=== PATIENT | female | born 1955 | race Caucasian/White ===

== ENCOUNTER 2021-02-26 13:43 | Outpatient (CLI) | payer MEDICARE, SELFPAY ==
--- NOTE | 2021-02-26 13:57 | MM_ITS ---
WS: [id number] Exam: [place] [id number] Date/Time of Exam: 02/26/2021 2:00 PM Reason For Exam: SCREENING VIEWS: MLO and CC views both breasts. Comparison made with prior exam of 09/04/2011. Findings: There was no sign of mass, architectural distortion or suspicious calcification in either breast. Sta ble appearing small nodular densities in both breasts Fatty MM/[place] [id number] Impression: BI-RADS: 2-Benign FOLLOW-UP: 1 Year Follow-up This mammogram was also analyzed by the Computer Aided Detection System R2 Imag e Inspector Tester Sorter.
== END 2021-02-26 13:44 | disposition home or self-care (01) ==
LOC: RADSHAW 13:48
PROVIDERS: PCP Nurse Practitioner Family; Visit Provider Nurse Practitioner Family
DX: Z12.31 Encounter for screening mammogram for malignant neoplasm of breast (principal)
CPT/HCPCS: 77067

== ENCOUNTER 2021-03-13 10:26 | Outpatient (CLI) | payer MEDICARE, SELFPAY ==
--- NOTE | 2021-03-13 10:40 | XR_ITS ---
WS: [id number] XR lumbar spine 2-3V* [id number] REASON FOR EXAM: HIP PAIN/LOW BACK PAIN/FALL IN SHOWER FINDINGS: Mild rotatory scoliosis convex left. Mildly decreased bone density of the lumbar vertebrae without significant compression deformity or ot her focal lesion. Mild disc space narrowing at L1-L2 and L5-S1. No significant listhesis. XR/XR lumbar spine 2-3V* [id number] IMPRESSION: Mild changes of degenerative spondylosis with no acute abnormality.
--- NOTE | 2021-03-13 10:40 | XR_ITS ---
NOTE: Report was unsigned for reason: Order was edited. Original Signature date and time was: 03/13/21 @ 1134 WS: [id number] XR hip BI 3-4V wo/w pel [id number] REASON FOR EXAM: HIP PAIN/LOW BACK PAIN/FALL IN SHOWER FINDINGS: No fracture or focal bone lesion. Mild changes of osteoarthritis in both hips with mild joint space narrowing and subchondral sclerosis and marginal osteophytes of the acetabulum. No soft tissue abnormality. [facility] BI m 5V wo/w pel* [id number] IMPRESSION: Mild osteoarthritis of both hips with no acute abnormality identified.
== END 2021-03-13 10:27 | disposition home or self-care (01) ==
PROVIDERS: PCP Nurse Practitioner Family; Visit Provider Nurse Practitioner Family
DX: M54.50 Low back pain, unspecified (principal); M16.0 Bilateral primary osteoarthritis of hip; W18.2XXA Fall in (into) shower or empty bathtub, initial encounter
CPT/HCPCS: 72100; 73522; 73523

== ENCOUNTER 2022-10-25 14:50 | Outpatient (CLI) | payer MEDICARE, SELFPAY ==
--- NOTE | 2022-10-25 | USCV_ITS ---
Divina Escobar Age: 67 Gender: F : 1955 Exam Date: 10/25/2022 15:53 Ordering Phys: Cherrie Lopez COMPOSITE ENGINEER Technologist: CT Exam Location: [facility] – [place] Indication: Shortness of breath BP: 130 / 89 HR: 81 Rhythm: Sinus Technical Quality: Adequate MEASUREMENTS (Male / Female) Normal Values 2D ECHO LV Chamber Size 5.4 cm RV Chamber Size 4.5 cm LVOT Diameter 2.0 cm LV Ejection Fraction MOD 2C 48.3 % LV Ejection Fraction 2C AL 48.5 % LA Diameter 3.9 cm LA Width 4.6 cm LA Height 6.0 cm RA Width 3.9 cm RA Height 5.2 cm Aorta at Sinotubular Diameter 2.5 cm M-MODE Aortic Annulus Diameter 3.3 cm LA Ao Ratio MM 1.4 MV E Point Septal Separation 0.4 cm DOPPLER AV Peak Velocity 215.0 cm/s LVOT Peak Velocity 111.0 cm/s AV Area Cont Eq vti 2.5 cm squared AV Area Cont Eq pk 1.7 cm squared MV Peak Velocity 147.0 cm/s MV Area PHT 4.0 cm squared Mitral E to A Ratio 0.7 MV E' Velocity 49.5 cm/s Mitral E to MV E' Ratio 11.2 Mitral E to LV E' Lateral Ratio 13.5 Mitral E to LV E' Septal Ratio 9.7 TR Peak Velocity 97.0 cm/s TR Peak Gradient 3.8 mmHg TV Peak E Velocity 88.0 cm/s Right Atrial Pressure 3.0 mmHg Pulmonary Artery Systolic Pressu 6.8 mmHg PV Peak Velocity 144.0 cm/s FINDINGS Left Ventricle Normal left ventricular size, systolic function and wall thickness, with no regional wall motion abnormalities. Left ventricular ejection fraction is estimated at 70 %. Normal diastolic function. Right Ventricle Normal right ventricular size and systolic function. RVSP could not be calculated due to incomplete tricuspid regurgitation velocity profile. Right Atrium Normal right atrial size. Left Atrium Mildly increased left atrial size. Mitral Valve Moderate mitral annular calcification. Mildly thickened mitral valve. No mitral valve stenosis. Trace mitral valve regurgitation. Aortic Valve Mildly thickened and trileaflet aortic valve. No aortic valve stenosis. No aortic valve regurgitation. Tricuspid Valve Structurally normal tricuspid valve. Trace tricuspid valve regurgitation. Pulmonic Valve Pulmonic valve not well visualized. No pulmonary valve stenosis. Pericardium No pericardial effusion. Aorta Normal size aortic root and proximal ascending aorta. IVC Inferior vena cava not visualized. CONCLUSIONS 1. Normal left ventricular size, systolic function and wall thickness, with no regional wall motion abnormalities. Left ventricular ejection fraction is estimated at 70 %. Normal diastolic function. 2. No prior similar studies to compare. Marzena Kraft MD (Electronically Signed) Final Date: 26 October 2022 08:37 S
== END 2022-10-25 14:51 | disposition home or self-care (01) ==
PROVIDERS: PCP Nurse Practitioner Family; Visit Provider Nurse Practitioner Family
DX: R01.1 Cardiac murmur, unspecified (principal); R42 Dizziness and giddiness; R06.02 Shortness of breath
CPT/HCPCS: 93306

== ENCOUNTER 2023-04-03 09:33 | Outpatient (CLI) | payer MEDICARE, SELFPAY ==
--- NOTE | 2023-04-03 09:41 | XR_ITS ---
WS: [id number] Examination: XR chest 2V* [id number] Reason for Exam: COPD/SHORTNESS OF BREATH Date: 04/03/2023 Comparison: None. Findings: The heart is not grossly enlarged on this study. The mediastinum is not widened. Calcification atherosclerotic changes of the aorta are noted. The lung markings are diffusely increased which may be chronic in nature. No dense consolidation is i dentified. There is no pulmonary edema or large effusion suspected. There is mild wedging of T12. Impression: The markings are increased which I suspect are chronic in nature however without comparisons availabl e I recommend follow-up imaging to assess for any interval change of a superimposed infiltrate.
== END 2023-04-03 09:34 | disposition home or self-care (01) ==
LOC: RAD 09:35
PROVIDERS: PCP Nurse Practitioner Family; Visit Provider Nurse Practitioner Family
DX: J44.9 Chronic obstructive pulmonary disease, unspecified (principal)
CPT/HCPCS: 71046

== ENCOUNTER 2023-05-20 15:42 | Emergency (ER) | payer MEDICARE, SELFPAY ==
[2023-05-20] VITALS (13 sets, daily range): BP systolic 124–150; BP diastolic 77–86; PULSE 82–99; RESP 16–20; TEMP 36.7; O2SAT 94–98; BMI 41.7
--- NOTE | 2023-05-20 15:45 | XRR_ITS ---
PROCEDURE INFORMATION: Exam: XR Chest Exam date and time: 05/20/2023 3:51 PM Age: 68 years old Clinical indication: Other: Chest pain; Prior surgery; Surgery date: 6+ months; Surgery type: Prev lung drain tube; Additional info: Cp TECHNIQUE: Imaging protocol: Radiologic exam of the chest. Views: 1 view. COMPARISON: CR XR chest 2V* [id number] 04/03/2023 10:03 AM FINDINGS: Lungs: Peripheral left basilar opacity. Pleural spaces: Unremarkable. No pleural effusion. No pneumothorax. Heart/Mediastinum: Borderline cardiomegaly. Bones/joints: Unremarkable. XR/XR chest 1V portable [id number] IMPRESSION: Peripheral left basilar opacity suspicious for pneumonia in the appropriate clinical context.
--- NOTE | 2023-05-20 15:55 | W.ED.CHESTPA ---
HPI - Chest Pain General: Chief Complaint: Chest Pain Stated Complaint: chest pain Time Seen by Provider: 05/20/23 15:45 Source: patient Mode of arrival: ambulatory Limitations: no limitations History of Present Illness: 68-year-old female states that over the last 3 hours she been having chest pain she also been having some shortness of breath she has a history of COPD she wears 2 L oxygen at baseline. She denies any vomiting or diarrhea she denies any cough she denies any worsening proving factors. Associated symptoms: Reports dyspnea; Deny abdominal pain, fever(s), nausea or vomiting Review of Systems Const: Denies: fever(s), chills, body aches or change in appetite ENMT: Denies: throat pain or dental pain Card: Reports: chest pain Resp: Reports: dyspnea GI: Denies: abdominal pain, nausea, vomiting or diarrhea Musc: Denies: neck pain or back pain Skin/Breast: Denies: rash Neuro: Denies: headache(s) Physical Exam Const: COMMON NORMALS: no acute distress, patient oriented x3 and healthy appearing HENMT: COMMON NORMALS: normocephalic and atraumatic HEAD & SCALP: normocephalic and atraumatic Neck/C-Spine: COMMON NORMALS: full ROM and supple Chest: COMMONS NORMALS: normal inspection of the chest Resp: COMMON NORMALS: normal respiratory effort, No retractions, No use of accessory muscles and clear to auscultation bilaterally AUSCULTATION: clear to auscultation bilaterally Cardio: COMMON NORMALS: regular rate, regular rhythm and No murmurs present (Cardio) RATE: regular rate RHYTHM: regular rhythm GI: COMMON NORMALS: Normal to inspection, nondistended, normoactive bowel sounds present, Soft to palpation, non-tender and no masses PALPATION: Yes Soft to palpation Extremity: COMMON NORMALS: normal to inspection and full ROM Neuro: COMMON NORMALS: patient oriented x3, moves all extremities and no focal motor deficits Psych: COMMON NORMALS: mental status grossly normal, Normal thought process present and cooperative THOUGHT PROCESS: Normal thought process present Skin: COMMON NORMALS: no rashes or lesions noted and no wounds GENERAL SKIN EXAM: no rashes or lesions noted Course Vital Signs: Vital signs: Vital Signs Temperature 98.0 F 05/20/23 15:44 Pulse Rate 87 05/20/23 20:15 Respiratory Rate 17 05/20/23 17:57 Blood Pressure 124/83 05/20/23 17:57 Pulse Oximetry 97 05/20/23 20:15 Oxygen Delivery Me thod Nasal Cannula 05/20/23 20:15 Oxygen Flow Rate 3 05/20/23 20:15 MDM - Chest Pain Medical Decision Making Patient presents here with some chest pain slight cough as well x-ray does show mild pneumonia she has been stable here laboratory oxygen up to [address] will [address] her on doxycycline she is follow-up and return if worsening she understands agrees to plan Medical Records I reviewed the patient's medical records. Lab Data I reviewed the patient's lab results. 05/20/23 16:00 05/20/23 16:00 Radiology Impressions Chest X-Ray 05/20/23 15:45 IMPRESSION: Peripheral left basilar opacity suspicious for pneumonia in the appropriate clinical context. Laboratory Results WBC 4.67 10^3/uL (3.29-11.43) 05/20/23 16:00 RBC 3.74 10^6/uL (3.85-5.65) L 05/20/23 16:00 Hgb 11.60 g/dL (11.27-16.99) 05/20/23 16:00 Hct 35.9 % (36-47) L 05/20/23 16:00 MCV 96.0 fl (85-98) 05/20/23 16:00 MCH 31.0 pg (27-33) 05/20/23 16:00 MCHC 32.3 g/dL (30-55) 05/20/23 16:00 RDW 13.7 % (12.1-15.1) 05/20/23 16:00 Plt Count 198 10^3/cmm (157-399) 05/20/23 16:00 MPV 10.3 fL (7.4-10.4) 05/20/23 16:00 Neut % (Auto) 63.0 % 05/20/23 16:00 Lymph % (Auto) 25.7 % 05/20/23 16:00 [place] % (Auto) 9.2 % 05/20/23 16:00 Eos % (Auto) 0.9 % 05/20/23 16:00 Baso % (Auto) 0.6 % 05/20/23 16:00 Neut # (Auto) 2.94 10^3/uL (1.8-7.7) 05/20/23 16:00 Lymph # (Auto) 1.2 10^3/uL (0.8-4.8) 05/20/23 16:00 [place] # (Auto) 0.4 10^3/uL (0.2-0.9) 05/20/23 16:00 Eos # (Auto) 0.0 10^3/uL (0.0-0.8) 05/20/23 16:00 Baso # (Auto) 0.0 10^3/uL (0.0-0.1) 05/20/23 16:00 Nucleated RBC % (auto) 0 % 05/20/23 16:00 Nucleated RBCs # 0.0 /100WBC 05/20/23 16:00 PT 13.20 SECONDS (12.1-14.9) 05/20/23 16:00 INR 0.97 (0.8-1.2) 05/20/23 16:00 Sodium 139 mmol/L (136-145) 05/20/23 16:00 Potassium 3.3 mmol/L (3.5-5.1) L 05/20/23 16:00 Chloride 104 mmol/L (98-107) 05/20/23 16:00 Carbon Dioxide 25 mmol/L (22-29) 05/20/23 16:00 Anion Gap 13.3 (5-19) 05/20/23 16:00 BUN 7 mg/dL (8-23) L 05/20/23 16:00 Creatinine 0.3 mg/dL (0.5-0.9) L 05/20/23 16:00 GFR Calculation 221.2 mL/min (90-130) H 05/20/23 16:00 Glucose 95 mg/dL (65-115) 05/20/23 16:00 Calculated Osmolality 286 mOsm/kg (285-295) 05/20/23 16:00 Calcium 8.9 mg/dL (8.5-10.5) 05/20/23 16:00 Total Bilirubin 0.4 mg/dL (0.15-1.2) 05/20/23 16:00 AST 13 U/L (0-32) 05/20/23 16:00 ALT 7 U/L (0-33) 05/20/23 16:00 Alkaline Phosphatase 75 U/L (35-105) 05/20/23 16:00 Troponin T Baseline 16 ng/L (0-10) H 05/20/23 16:00 Troponin T 120 Minute 17.61 ng/L (0-10) H 05/20/23 17:34 Delta Troponin T 1.61 ABS# (0-10) 05/20/23 17:34 NT-Pro-B Natriuret Pep 649 pg/mL (0-125) H 05/20/23 16:00 Total Protein 5.2 g/dL (6.6-8.7) L 05/20/23 16:00 Albumin 3.5 g/dL (3.5-5.2) 05/20/23 16:00 Globulin 1.7 g/dL (1.3-4.6) 05/20/23 16:00 Lipase 16 U/L (13-60) 05/20/23 16:00 All radiology interpretation(s) finalized by discharge EKG Data EKG 1: I personally reviewed and interpreted this EKG as follows: EKG interpretation date: 05/20/23 EKG interpretation time: 16:11 Interpretation: nsr hr [address] or t wave abnormalities qrs 89 qtc 420 Discharge Plan Discharge Patient Disposition: Home Clinical Impression: Chest pain, Pneumonia Condition: Stable Prescriptions: New doxycycline hyclate 100 mg tablet 100 mg PO BID 7 Days Qty: 14 0RF No Action atorvastatin 40 mg tablet 40 mg PO QAM potassium chloride 10 mEq tablet extended release 10 meq PO QAM pantoprazole 40 mg tablet,delayed release (DR/EC) 40 mg PO BID oxybutynin chloride 5 mg tablet extended release 24hr 5 mg PO DAILY lisinopril 40 mg tablet 40 mg PO DAILY@15 aripiprazole 5 mg tablet 5 mg PO DAILY Prozac 40 mg Capsule 40 mg PO DAILY Plavix 75 mg Tablet 75 mg PO QAM Tylenol Ex Str Rapid Release 500 mg Tablet 1,000 mg PO Q6H PRN (Reason: Pain) Discharge Orders: Discharge ED (Routine); Ordered 05/20/23 Ordered By: Nette Menchaca Referrals: Lopez,Cherrie, CHANGE MANAGEMENT COORDINATOR [Primary Care Provider] - 1-3 days Discharge Diet: Advance as tolerated Discharge Activity: Resume usual activity Patient Instructions: Chest Pain (ED), Pneumonia (ED) Coding Level of Care Code 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
--- NOTE | 2023-05-20 16:00 | PC.PHAR ---
pt brought in medication bottles and states that all she takes-pt states took some meds today
--- NOTE | 2023-05-20 16:01 | PC.NURSE ---
Pt on bedside fur blower
[2023-05-20 16:07] LABS: Basophils % 0.6 %; Eosinophils % 0.9 %; Hematocrit 35.9 % (36-47); Lymphocytes # 1.2 10^3/uL (0.8-4.8); Lymphocytes % 25.7 %; Mean Corpuscular HGB Conc 32.3 g/dL (30-55); Mean Platelet Volume 10.3 fL (7.4-10.4); Monocytes # 0.4 10^3/uL (0.2-0.9); Monocytes % 9.2 %; Neutrophils # 2.94 10^3/uL (1.8-7.7); Nucleated Red Blood Cells % 0 %; Platelet Count 198 10^3/cmm (157-399); Red Blood Count 3.74 10^6/uL (3.85-5.65); Red Cell Distribution Width 13.7 % (12.1-15.1); White Blood Count 4.67 10^3/uL (3.29-11.43)
--- NOTE | 2023-05-20 16:11 | ECG_ITS ---
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 Measurements Intervals [place] Rate: 89 P: 5 MS: 112 QRS: -29 QRSD: 89 T: 4 QT: 373 QTc: 456 Interpretive Statements SINUS RHYTHM WITH SHORT MS INTERVAL POSSIBLE LEFT ATRIAL ENLARGEMENT [-0.1mV P-WAVE IN V1/V2] BORDERLINE LEFT AXIS DEVIATION [QRS AXIS < -20] No previous ECG available for comparison Electronically Signed On 05-20-2023 21:23:40 CDT by Basil Mohr M.D. [id number]
[2023-05-20 16:21] LABS: INR 0.97 (0.8-1.2)
[2023-05-20] MEDS: ipratropium-albuterol 3 mL Neb INHALATION (16:28)
[2023-05-20 16:39] LABS: Troponin(5th) Baseline 16 ng/L (0-10)
[2023-05-20 16:49] LABS: Alanine Aminotransferase 7 U/L (0-33); Albumin Level 3.5 g/dL (3.5-5.2); Alkaline Phosphatase 75 U/L (35-105); Anion Gap 13.3 (5-19); Aspartate Amino Transferase 13 U/L (0-32); Blood Urea Nitrogen 7 mg/dL (8-23); Calcium 8.9 mg/dL (8.5-10.5); Carbon Dioxide 25 mmol/L (22-29); Chloride 104 mmol/L (98-107); Creatinine Clr Calc Pharmacy 75.8918; Globulin 1.7 g/dL (1.3-4.6); Glomerular Filtration Rate 221.2 mL/min (90-130); Glucose 95 mg/dL (65-115); Lipase 16 U/L (13-60); NT Pro B Type Natriuretic Pept 649 pg/mL (0-125); Osmolality Calculated 286 mOsm/kg (285-295); Potassium 3.3 mmol/L (3.5-5.1); Sodium 139 mmol/L (136-145); Total Bilirubin 0.4 mg/dL (0.15-1.2); Total Protein 5.2 g/dL (6.6-8.7)
[2023-05-20] MEDS: acetaminophen 325 mg Tablet 650 MG PO (18:05)
[2023-05-20 18:59] LABS: Troponin 5 2HR 17.61 ng/L (0-10); Troponin 5 2HR Delta 1.61 ABS# (0-10)
--- NOTE | 2023-05-20 18:59 | PC.NURSE ---
report to CLAUDIA Hamilton
[2023-05-20] MEDS: doxycycline 100 mg Tablet PO (19:43)
--- NOTE | 2023-05-20 21:45 | ECG_ITS ---
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 Measurements Intervals [place] Rate: 93 P: 10 NC: 119 QRS: -32 QRSD: 94 T: 4 QT: 323 QTc: 402 Interpretive Statements SINUS RHYTHM WITH SHORT NC INTERVAL LEFT AXIS DEVIATION [QRS AXIS < -30] PATTERN CONSISTENT WITH PULMONARY DISEASE NONSPECIFIC T-WAVE ABNORMALITY Compared to ECG 05/20/2023 16:11:32 T-wave abnormality now present Electronically Signed On 05-20-2023 21:28:48 CDT by Basil Mohr M.D. [email or web address] [email or web address] [email or web address] SP[id number]
== END 2023-05-20 20:33 | disposition home or self-care (01) ==
PROVIDERS: Emergency Provider Emergency Medicine; PCP Nurse Practitioner Family
DX: R07.9 Chest pain, unspecified (principal); J18.9 Pneumonia, unspecified organism; Z79.02 Long term (current) use of antithrombotics/antiplatelets
CPT/HCPCS: 36415; 71045; 80053; 83690; 83880; 84484; 85025; 85610; 93005; 94640; 99285

== ENCOUNTER 2023-05-26 14:53 | Outpatient (CLI) | payer MEDICARE, SELFPAY ==
--- NOTE | 2023-05-26 15:00 | MM_ITS ---
WS: [id number] BILATERAL 3D TOMOSYNTHESIS DIGITAL SCREENING MAMMOGRAPHY WITH CAD CLINICAL INFORMATION: SCREENING HISTORY: Screening mammogram. No current complaints. COMPARISON: 2021 TECHNIQUE: Bilateral CC and MLO views. FINDINGS: Scattered fibroglandular densities bilaterally. No suspicious focal mass, asymmetry, calcifications, or architectural distortion. No evidence of malignancy. Stable intramammary lymph nodes. IMPRESSION: MM/[place] [id number] BI-RADS: 2-Benign FOLLOW UP: 1 Year Follow-up Recommend return to annual screening mammography.
== END 2023-05-26 14:54 | disposition home or self-care (01) ==
LOC: RAD 14:53
PROVIDERS: PCP Nurse Practitioner Family; Visit Provider Nurse Practitioner Family
DX: Z12.31 Encounter for screening mammogram for malignant neoplasm of breast (principal)
CPT/HCPCS: 77063; 77067

== ENCOUNTER 2023-06-05 09:50 | Outpatient (CLI) | payer MEDICARE, SELFPAY ==
--- NOTE | 2023-06-05 09:56 | CT_ITS ---
WS: [id number] LDCT LUNG CANCER SCREENING HISTORY: PERSONAL HX OF NICOTINE DEPENDENCE TECHNIQUE: Axial imaging performed from the apices to 1 cm below the costophrenic angles. Coronal and sagittal reformats are submitted with axial MIP series. All CT scans at [facility] use at least one of these dose optimization techniques: automated exposure control; mA and/or kV adjustment per patient size (includes targeted exams where dose is matched to clinical indication); or iterativ e reconstruction. DLP: 84.22 mGy.cm DIvol: Mean CTDIvol: 2.30 (mGy) COMPARISON: None available. Diagnostic quality: Satisfactory Lungs: Normally aerated lung. Near diffuse hazy and groundglass attenuation throughout both lungs. Th ere are a few small cystic areas of the lungs which may be associated with centrilobular emphysema. N o mass or nodule. Heart: Heart is mildly enlarged. There is a small pericardial effusion. Moderate calcification in the coronary arteries.. Other findings: Atherosclerosis aorta. RIGHT adrenal adenoma 1.8 cm. IMPRESSION: CT/CT lung screening [id number] LUNG-RADS: 1S-Negative with Significant Findings FOLLOW UP: 12 Month: Continue annual screening with LDCT OTHER FINDINGS (S MODIFIER): Extensive bilateral groundglass attenuation. This can be seen with air trapping and hypersensitivity pneumonia.
== END 2023-06-05 09:51 | disposition home or self-care (01) ==
LOC: RAD 09:52
PROVIDERS: PCP Nurse Practitioner Family; Visit Provider Nurse Practitioner Family
DX: Z12.2 Encounter for screening for malignant neoplasm of respiratory organs (principal); Z87.891 Personal history of nicotine dependence
CPT/HCPCS: 71271

== ENCOUNTER 2023-07-27 23:25 | Observation (INO) | payer MEDICARE, SELFPAY ==
[2023-07-27 23:26] VITALS: BP 128/55; PULSE 92; RESP 18; TEMP 36.6; O2SAT 96; BMI 41.7
--- NOTE | 2023-07-27 23:28 | CTR_ITS ---
PROCEDURE INFORMATION: Exam: CT Head Without Contrast Exam date and time: 07/28/2023 12:28 AM Age: 68 years old Clinical indication: Patient HX: C/O dizziness TECHNIQUE: Imaging protocol: Computed tomography of the head without contrast. Radiation optimization: All CT scans at this facility use at least one of these dose optimization techniques: automated exposure control; mA and/or kV adjustment per patient size (includes targeted exams where dose is matched to clinical indication); or iterative reconstruction. COMPARISON: No relevant prior studies available. RADIATION DOSE METRICS: Total DLP (mGy-cm): 976.84 FINDINGS: Brain: There is moderate cerebral atrophy. There is mild diffuse heterogeneity of the white matter attenuation, consistent with chronic white matter ischemic changes. Negative for intracranial hemorrhage. Negative for intracranial mass. Negative for midline shift the brain. Negative for acute brain ischemia. Cerebral ventricles: No ventriculomegaly. Paranasal sinuses: Visualized sinuses are unremarkable. No fluid levels. Mastoid air cells: Visualized mastoid air cells are well aerated. Bones: Unremarkable. No acute fracture. Soft tissues: Unremarkable. CT/CT head wo con* [id number] IMPRESSION: Negative for acute intracranial pathology.
--- NOTE | 2023-07-27 23:28 | XRR_ITS ---
PROCEDURE INFORMATION: Exam: XR Chest Exam date and time: 07/27/2023 11:39 PM Age: 68 years old Clinical indication: Shortness of breath and other: Dizziness; Patient HX: C/O dizziness with SOB TECHNIQUE: Imaging protocol: Radiologic exam of the chest. Views: 1 view. COMPARISON: CT lung screening [id number] 06/05/2023 10:15 AM FINDINGS: Lungs: Mild coarsening of the interstitial lung markings bilaterally. Negative for pulmonary consolidation. Pleural spaces: Unremarkable. No pleural effusion. No pneumothorax. Heart/Mediastinum: Hiatal hernia. Unremarkable cardiac silhouette. Bones/joints: Unremarkable. XR/XR chest 1V portable [id number] IMPRESSION: Negative for focal acute pulmonary disease.
--- NOTE | 2023-07-27 23:29 | ECG_ITS ---
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 Measurements Intervals [place] Rate: 90 P: 14 NE: 140 QRS: -30 QRSD: 89 T: 4 QT: 382 QTc: 468 Interpretive Statements SINUS RHYTHM POSSIBLE LEFT ATRIAL ENLARGEMENT [-0.1mV P-WAVE IN V1/V2] BORDERLINE LEFT AXIS DEVIATION [QRS AXIS < -20] Compared to ECG 05/20/2023 18:19:48 Short NE interval no longer present T-wave abnormality no longer present Electronically Signed On 07-27-2023 23:54:40 CDT by Cr Devine M.D. [id number]
--- NOTE | 2023-07-27 23:30 | ED_ITS ---
Documented by User: ADAN Thomas 07/31/23 13:27 HPI - General Adult 2 General: Chief complaint: Dizziness Stated complaint: dizziness Time Seen by Provider: 07/27/23 23:28 History of Present Illness: 68-year-old female comes in today with c omplaints of weakness and some chest discomfort. Patient reports symptoms started about 2 and half hours prior to arrival to the ER. Patient was brought in by EMS. Patient has a history of COPD, high blood pressure, high cholesterol, and MDD. Patient does take Plavix routinely. Patient also takes lisinopril 40 mg daily, aripiprazole, fluoxetine, pantoprazole, and potassium chloride, and atorvastatin. EKG showed no ST elevation per EMS. Review of Systems 2 General: Reports: 10 or more systems reviewed and unremarkable except in HPI and below PFSH ED 2 PFSH: Medical History (Updated 07/28/23 @ 07:46 by Yeni Craig MD) Leg swelling Hypertension Chronic hypoxemic respiratory failure COPD (chronic obstructive pulmonary disease) Physical Exam 2 Const: COMMON NORMALS: alert HENMT: COMMON NORMALS: normocephalic HEAD & SCALP: normocephalic Neck/C-Spine: COMMON NORMALS: full ROM Cardio: COMMON NORMALS: regular rate and regular rhythm RATE: regular rate RHYTHM: regular rhythm GI: COMMON NORMALS: Soft to palpation PALPATION: Yes Soft to palpation Back/Pelvis: COMMON NORMALS: thoracic and lumbar spine normal to inspection Extremity: COMMON NORMALS: normal to inspection Neuro: SENSORIUM/ORIENTATION: Yes alert Skin: COMMON NORMALS: turgor normal GENERAL SKIN EXAM: turgor normal Course 2 Vital Signs: Vital signs: Vital Signs Temperature 98.0 F 07/31/23 11:19 Pulse Rate 83 07/31/23 11:19 Respiratory Rate 16 07/31/23 11:19 Blood Pressure 122/70 07/31/23 11:19 Pulse Oximetry 98 07/31/23 11:19 Oxygen Delivery Me thod Nasal Cannula 07/31/23 11:19 Oxygen Flow Rate 2 07/31/23 11:19 [facility] - General Adult Medical Decision Making 68-year-old female comes in today for complaints of weakness and chest discomfort. On exam patient appears chronically ill but not toxic. Patient skin is pale. Skin is warm and dry. Some mild +1 pitting edema is noted to lower extremities. Pulses are intact to the extremities. Abdomen soft nontender. Differential diagnosis includes ACS, CHF, MDD, anemia, UTI, electrolyte imbalance. Lab Data 07/31/23 06:35 07/31/23 06:35 Radiology Impressions Chest X-Ray 07/27/23 23:28 IMPRESSION: Negative for focal acute pulmonary disease. Head CT 07/27/23 23:28 IMPRESSION: Negative for acute intracranial pathology. Chest CTA 07/28/23 07:12 IMPRESSION: 1. Bilateral lower lobe pulmonary emboli beginning in the proximal segmental branches. 2. No RIGHT heart strain. 3. Cardiomegaly. 4. Small pericardial effusion. 5. Mild pulmonary congestion. 6. Large hiatal hernia. Laboratory Results WBC 3.85 10^3/uL (3.29-11.43) 07/27/23 23:34 RBC 3.53 10^6/uL (3.85-5.65) L 07/27/23 23:34 Hgb 11.20 g/dL (11.27-16.99) L 07/27/23 23:34 Hct 35.3 % (36-47) L 07/27/23 23:34 MCV 100.0 fl (85-98) H 07/27/23 23:34 MCH 31.7 pg (27-33) 07/27/23 23:34 MCHC 31.7 g/dL (30-55) 07/27/23 23:34 RDW 13.7 % (12.1-15.1) 07/27/23 23:34 Plt Count 129 10^3/cmm (157-399) L 07/27/23 23:34 MPV 11.6 fL (7.4-10.4) H 07/27/23 23:34 Neut % (Auto) 64.4 % 07/27/23 23:34 Lymph % (Auto) 23.1 % 07/27/23 23:34 [place] % (Auto) 10.6 % 07/27/23 23:34 Eos % (Auto) 0.8 % 07/27/23 23:34 Baso % (Auto) 0.8 % 07/27/23 23:34 Neut # (Auto) 2.48 10^3/uL (1.8-7.7) 07/27/23 23:34 Lymph # (Auto) 0.9 10^3/uL (0.8-4.8) 07/27/23 23:34 [place] # (Auto) 0.4 10^3/uL (0.2-0.9) 07/27/23 23:34 Eos # (Auto) 0.0 10^3/uL (0.0-0.8) 07/27/23 23:34 Baso # (Auto) 0.0 10^3/uL (0.0-0.1) 07/27/23 23:34 Nucleated RBC % (auto) 0 % 07/27/23 23:34 Nucleated RBCs # 0.0 /100WBC 07/27/23 23:34 D-Dimer 0.90 ug/mLFEU (0-0.59) H 07/27/23 22:34 Sodium 138 mmol/L (136-145) 07/27/23 23:34 Potassium 3.5 mmol/L (3.5-5.1) 07/27/23 23:34 Chloride 101 mmol/L (98-107) 07/27/23 23:34 Carbon Dioxide 27 mmol/L (22-29) 07/27/23 23:34 Anion Gap 13.5 (5-19) 07/27/23 23:34 BUN 6 mg/dL (8-23) L 07/27/23 23:34 Creatinine 0.3 mg/dL (0.5-0.9) L 07/27/23 23:34 GFR Calculation 221.2 mL/min (90-130) H 07/27/23 23:34 Glucose 114 mg/dL (65-115) 07/27/23 23:34 Calculated Osmolality 284 mOsm/kg (285-295) L 07/27/23 23:34 Calcium 8.6 mg/dL (8.5-10.5) 07/27/23 23:34 Total Bilirubin 0.4 mg/dL (0.15-1.2) 07/27/23 23:34 AST 17 U/L (0-32) 07/27/23 23:34 ALT 10 U/L (0-33) 07/27/23 23:34 Alkaline Phosphatase 66 U/L (35-105) 07/27/23 23:34 Troponin T Baseline 30 ng/L (0-10) H 07/27/23 23:34 Troponin T 120 Minute 27.74 ng/L (0-10) H 07/28/23 01:21 Delta Troponin T -2.26 ABS# (0-10) L 07/28/23 01:21 Total Protein 5.1 g/dL (6.6-8.7) L 07/27/23 23:34 Albumin 3.2 g/dL (3.5-5.2) L 07/27/23 23:34 Globulin 1.9 g/dL (1.3-4.6) 07/27/23 23:34 Urine Color Yellow (Yellow) 07/27/23 23:37 Urine Appearance Clear (CLEAR) 07/27/23 23:37 Urine pH 5 (5-7) 07/27/23 23:37 Ur Specific [place] 1.020 (1.005-1.030) 07/27/23 23:37 Urine Protein Neg (Negative) 07/27/23 23:37 Urine Glucose (UA) Norm (Normal) 07/27/23 23:37 Urine Ketones 1+ (Negative) H 07/27/23 23:37 Urine Blood Neg (Negative) 07/27/23 23:37 Urine Nitrate Negative (Negative) 07/27/23 23:37 Urine Bilirubin 1+ (Negative) H 07/27/23 23:37 Urine Urobilinogen 1 mg/dL (Negative) H 07/27/23 23:37 Ur Leukocyte Esterase Negative (Negative) 07/27/23 23:37 Urine RBC Cancelled 07/27/23 23:37 Urine WBC Cancelled 07/27/23 23:37 Ur Squamous Epith Cells Cancelled 07/27/23 23:37 Ur Transition Epith Cell Cancelled 07/27/23 23:37 Ur Renal Epithelial Cell Cancelled 07/27/23 23:37 Calcium Oxalate Crystal Cancelled 07/27/23 23:37 Uric Acid Crystals Cancelled 07/27/23 23:37 Triple Phos Crystals Cancelled 07/27/23 23:37 Other Crystals Cancelled 07/27/23 23:37 Amorphous Sediment Cancelled 07/27/23 23:37 Urine Bacteria Cancelled 07/27/23 23:37 Hyaline Casts Cancelled 07/27/23 23:37 Fine Granular Casts Cancelled 07/27/23 23:37 Coarse Granular Casts Cancelled 07/27/23 23:37 RBC Casts Cancelled 07/27/23 23:37 Other Casts Cancelled 07/27/23 23:37 Urine Mucus Cancelled 07/27/23 23:37 Urine Trichomonas Cancelled 07/27/23 23:37 Urine Yeast Cancelled 07/27/23 23:37 Urine Sperm Cancelled 07/27/23 23:37 Ur Oval Fat Bodies Cancelled 07/27/23 23:37 Discharge Plan Discharge Patient Disposition: Placed in Observation Admit Provider: Yeni Craig Clinical Impression: Generalized muscle weakness Chest pain Qualifiers: Chest pain type: unspecified Qualified Code(s): R07.9 - Chest pain, unspecified Coding Level of Care Code ED Collection Analyst for Chg Fwd Documented by User: Denver Keith DO 07/28/23 03:58 HPI - General Adult 2 General: Chief complaint: Dizziness Stated complaint: dizziness Time Seen by Provider: 07/27/23 23:28 [facility] ED 2 [facility]: Medical History (Updated 07/28/23 @ 07:46 by Yeni Craig MD) Leg swelling Hypertension Chronic hypoxemic respiratory failure COPD (chronic obstructive pulmonary disease) Course 2 Vital Signs: Vital signs: Vital Signs Temperature 98.0 F 07/31/23 11:19 Pulse Rate 83 07/31/23 11:19 Respiratory Rate 16 07/31/23 11:19 Blood Pressure 122/70 07/31/23 11:19 Pulse Oximetry 98 07/31/23 11:19 Oxygen Delivery Me thod Nasal Cannula 07/31/23 11:19 Oxygen Flow Rate 2 07/31/23 11:19 [facility] - General Adult Medical Decision Making 68-year-old female comes in today for complaints of weakness and chest discomfort. On exam patient appears chronically ill but not toxic. Patient skin is pale. Skin is warm and dry. Some mild +1 pitting edema is noted to lower extremities. Pulses are intact to the extremities. Abdomen soft nontender. Differential diagnosis includes ACS, CHF, MDD, anemia, UTI, electrolyte imbalance. This patient was originally seen by ADAN Katz.? I agree with his history, evaluation, and treatment. Attempted to walk patient in the emergency department, after 2 steps, she is very unstable, shaking, and weak. Has been is not capable of picking her up if she falls at home, and she is very unstable. Her EKG does not show acute ST wave changes. Hemoglobin is 11. Potassium is 3.5. Platelet count 129. Chest x-ray is negative. Head CT is negative. Troponin at 2 hours did not elevated. Will observe, ask PT and OT to see the patient later this morning to assess ambulation, etc. If she rules out for chest pain, could consider stress testing as she has had ongoing chest pain on and off for some time now. Lab Data 07/31/23 06:35 07/31/23 06:35 Radiology Impressions Chest X-Ray 07/27/23 23:28 IMPRESSION: Negative for focal acute pulmonary disease. Head CT 07/27/23 23:28 IMPRESSION: Negative for acute intracranial pathology. Chest CTA 07/28/23 07:12 IMPRESSION: 1. Bilateral lower lobe pulmonary emboli beginning in the proximal segmental branches. 2. No RIGHT heart strain. 3. Cardiomegaly. 4. Small pericardial effusion. 5. Mild pulmonary congestion. 6. Large hiatal hernia. Laboratory Results WBC 3.85 10^3/uL (3.29-11.43) 07/27/23 23:34 RBC 3.53 10^6/uL (3.85-5.65) L 07/27/23 23:34 Hgb 11.20 g/dL (11.27-16.99) L 07/27/23 23:34 Hct 35.3 % (36-47) L 07/27/23 23:34 MCV 100.0 fl (85-98) H 07/27/23 23:34 MCH 31.7 pg (27-33) 07/27/23 23:34 MCHC 31.7 g/dL (30-55) 07/27/23 23:34 RDW 13.7 % (12.1-15.1) 07/27/23 23:34 Plt Count 129 10^3/cmm (157-399) L 07/27/23 23:34 MPV 11.6 fL (7.4-10.4) H 07/27/23 23:34 Neut % (Auto) 64.4 % 07/27/23 23:34 Lymph % (Auto) 23.1 % 07/27/23 23:34 [place] % (Auto) 10.6 % 07/27/23 23:34 Eos % (Auto) 0.8 % 07/27/23 23:34 Baso % (Auto) 0.8 % 07/27/23 23:34 Neut # (Auto) 2.48 10^3/uL (1.8-7.7) 07/27/23 23:34 Lymph # (Auto) 0.9 10^3/uL (0.8-4.8) 07/27/23 23:34 [place] # (Auto) 0.4 10^3/uL (0.2-0.9) 07/27/23 23:34 Eos # (Auto) 0.0 10^3/uL (0.0-0.8) 07/27/23 23:34 Baso # (Auto) 0.0 10^3/uL (0.0-0.1) 07/27/23 23:34 Nucleated RBC % (auto) 0 % 07/27/23 23:34 Nucleated RBCs # 0.0 /100WBC 07/27/23 23:34 D-Dimer 0.90 ug/mLFEU (0-0.59) H 07/27/23 22:34 Sodium 138 mmol/L (136-145) 07/27/23 23:34 Potassium 3.5 mmol/L (3.5-5.1) 07/27/23 23:34 Chloride 101 mmol/L (98-107) 07/27/23 23:34 Carbon Dioxide 27 mmol/L (22-29) 07/27/23 23:34 Anion Gap 13.5 (5-19) 07/27/23 23:34 BUN 6 mg/dL (8-23) L 07/27/23 23:34 Creatinine 0.3 mg/dL (0.5-0.9) L 07/27/23 23:34 GFR Calculation 221.2 mL/min (90-130) H 07/27/23 23:34 Glucose 114 mg/dL (65-115) 07/27/23 23:34 Calculated Osmolality 284 mOsm/kg (285-295) L 07/27/23 23:34 Calcium 8.6 mg/dL (8.5-10.5) 07/27/23 23:34 Total Bilirubin 0.4 mg/dL (0.15-1.2) 07/27/23 23:34 AST 17 U/L (0-32) 07/27/23 23:34 ALT 10 U/L (0-33) 07/27/23 23:34 Alkaline Phosphatase 66 U/L (35-105) 07/27/23 23:34 Troponin T Baseline 30 ng/L (0-10) H 07/27/23 23:34 Troponin T 120 Minute 27.74 ng/L (0-10) H 07/28/23 01:21 Delta Troponin T -2.26 ABS# (0-10) L 07/28/23 01:21 Total Protein 5.1 g/dL (6.6-8.7) L 07/27/23 23:34 Albumin 3.2 g/dL (3.5-5.2) L 07/27/23 23:34 Globulin 1.9 g/dL (1.3-4.6) 07/27/23 23:34 Urine Color Yellow (Yellow) 07/27/23 23:37 Urine Appearance Clear (CLEAR) 07/27/23 23:37 Urine pH 5 (5-7) 07/27/23 23:37 Ur Specific [place] 1.020 (1.005-1.030) 07/27/23 23:37 Urine Protein Neg (Negative) 07/27/23 23:37 Urine Glucose (UA) Norm (Normal) 07/27/23 23:37 Urine Ketones 1+ (Negative) H 07/27/23 23:37 Urine Blood Neg (Negative) 07/27/23 23:37 Urine Nitrate Negative (Negative) 07/27/23 23:37 Urine Bilirubin 1+ (Negative) H 07/27/23 23:37 Urine Urobilinogen 1 mg/dL (Negative) H 07/27/23 23:37 Ur Leukocyte Esterase Negative (Negative) 07/27/23 23:37 Urine RBC Cancelled 07/27/23 23:37 Urine WBC Cancelled 07/27/23 23:37 Ur Squamous Epith Cells Cancelled 07/27/23 23:37 Ur Transition Epith Cell Cancelled 07/27/23 23:37 Ur Renal Epithelial Cell Cancelled 07/27/23 23:37 Calcium Oxalate Crystal Cancelled 07/27/23 23:37 Uric Acid Crystals Cancelled 07/27/23 23:37 Triple Phos Crystals Cancelled 07/27/23 23:37 Other Crystals Cancelled 07/27/23 23:37 Amorphous Sediment Cancelled 07/27/23 23:37 Urine Bacteria Cancelled 07/27/23 23:37 Hyaline Casts Cancelled 07/27/23 23:37 Fine Granular Casts Cancelled 07/27/23 23:37 Coarse Granular Casts Cancelled 07/27/23 23:37 RBC Casts Cancelled 07/27/23 23:37 Other Casts Cancelled 07/27/23 23:37 Urine Mucus Cancelled 07/27/23 23:37 Urine Trichomonas Cancelled 07/27/23 23:37 Urine Yeast Cancelled 07/27/23 23:37 Urine Sperm Cancelled 07/27/23 23:37 Ur Oval Fat Bodies Cancelled 07/27/23 23:37 All radiology interpretation(s) finalized by discharge Discharge Plan Discharge Patient Disposition: Placed in Observation Admit Provider: Yeni Craig Clinical Impression: Generalized muscle weakness Chest pain Qualifiers: Chest pain type: unspecified Qualified Code(s): R07.9 - Chest pain, unspecified Coding Level of Care Code ED Collection Analyst for [facility]
[2023-07-27 23:42] LABS: Basophils % 0.8 %; Eosinophils % 0.8 %; Hematocrit 35.3 % (36-47); Lymphocytes # 0.9 10^3/uL (0.8-4.8); Lymphocytes % 23.1 %; Mean Corpuscular HGB Conc 31.7 g/dL (30-55); Mean Corpuscular Hemoglobin 31.7 pg (27-33); Mean Platelet Volume 11.6 fL (7.4-10.4); Monocytes # 0.4 10^3/uL (0.2-0.9); Monocytes % 10.6 %; Neutrophils # 2.48 10^3/uL (1.8-7.7); Neutrophils % 64.4 %; Nucleated Red Blood Cells % 0 %; Platelet Count 129 10^3/cmm (157-399); Red Blood Count 3.53 10^6/uL (3.85-5.65); Red Cell Distribution Width 13.7 % (12.1-15.1); White Blood Count 3.85 10^3/uL (3.29-11.43)
[2023-07-27 23:57] LABS: Alanine Aminotransferase 10 U/L (0-33); Albumin Level 3.2 g/dL (3.5-5.2); Alkaline Phosphatase 66 U/L (35-105); Anion Gap 13.5 (5-19); Aspartate Amino Transferase 17 U/L (0-32); Blood Urea Nitrogen 6 mg/dL (8-23); Calcium 8.6 mg/dL (8.5-10.5); Carbon Dioxide 27 mmol/L (22-29); Chloride 101 mmol/L (98-107); Creatinine Clr Calc Pharmacy 75.8918; Globulin 1.9 g/dL (1.3-4.6); Glomerular Filtration Rate 221.2 mL/min (90-130); Glucose 114 mg/dL (65-115); Osmolality Calculated 284 mOsm/kg (285-295); Potassium 3.5 mmol/L (3.5-5.1); Sodium 138 mmol/L (136-145); Total Bilirubin 0.4 mg/dL (0.15-1.2); Total Protein 5.1 g/dL (6.6-8.7)
[2023-07-28] VITALS (18 sets, daily range): BP systolic 91–138; BP diastolic 42–82; PULSE 76–105; RESP 14–18; TEMP 36.3–36.7; O2SAT 91–99; BMI 35.5
[2023-07-28 00:06] LABS: Troponin(5th) Baseline 30 ng/L (0-10)
[2023-07-28 00:18] LABS: Charge for UA Resulting for Rev
[2023-07-28 00:21] LABS: Bilirubin Urine 1+ (Negative); Blood Urine Neg (Negative); Glucose Urine UA Norm (Normal); Ketones Urine 1+ (Negative); Leukocyte Esterase Urine Negative (Negative); Nitrate Urine Negative (Negative); Protein Urine Neg (Negative); Urine Appearance Clear (CLEAR); Urine Color Yellow (Yellow); Urobilinogen Urine 1 mg/dL (Negative); pH Urine 5 (5-7)
[2023-07-28 00:22] LABS: Add Urine Microscopic? NO
[2023-07-28] MEDS: ondansetron 2 mg/ML SDV 2 mL 4 MG IVP (01:03)
[2023-07-28] MEDS: morphine 4 mg/mL SDV 1 mL IVP (01:04)
--- NOTE | 2023-07-28 01:16 | ECG_ITS ---
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 Measurements Intervals [place] Rate: 89 P: 17 DE: 142 QRS: -31 QRSD: 94 T: 1 QT: 377 QTc: 460 Interpretive Statements SINUS RHYTHM POSSIBLE LEFT ATRIAL ENLARGEMENT [-0.1mV P-WAVE IN V1/V2] LEFT AXIS DEVIATION [QRS AXIS < -30] PATTERN CONSISTENT WITH PULMONARY DISEASE Compared to ECG 07/27/2023 23:45:36 No significant changes Electronically Signed On 07-28-2023 8:31:26 CDT by Cr Devine M.D. [id number]
[2023-07-28 01:47] LABS: Troponin 5 2HR 27.74 ng/L (0-10)
[2023-07-28 01:50] LABS: Troponin 5 2HR Delta -2.26 ABS# (0-10)
--- NOTE | 2023-07-28 05:45 | ECG_ITS ---
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 Measurements Intervals [place] Rate: 84 P: 6 PA: 131 QRS: -25 QRSD: 89 T: 1 QT: 371 QTc: 439 Interpretive Statements SINUS RHYTHM POSSIBLE ANTERIOR MYOCARDIAL INFARCTION , PROBABLY OLD [30 ms Q WAVE IN V3/V4, OR R < 0.2 mV IN V4] Compared to ECG 07/28/2023 01:16:36 Myocardial infarct finding now present Left-axis deviation no longer present Electronically Signed On 07-28-2023 8:31:14 CDT by Cr Devine M.D. [id number]
[2023-07-28 05:54] LABS: Troponin 5 6HR 38.76 ng/L (0-10); Troponin 5 6HR Delta 8.76 ng/L (0-12)
[2023-07-28] MEDS: enoxaparin 40 mg/0.4 mL Syringe SUBCUT (05:59)
[2023-07-28] MEDS: acetaminophen 325 mg Tablet 650 MG PO (06:02)
[2023-07-28 06:24] LABS: Creatine Phosphokinase 78 U/L (26-192)
[2023-07-28 06:33] LABS: Thyroid Stimulating Hormone 2.27 uIU/mL (0.27-4.20)
--- NOTE | 2023-07-28 07:12 | USCV_ITS ---
Divina Escobar Age: 68 Gender: F : 1955 Exam Date: 07/28/2023 08:58 Ordering Phys: Yeni Craig MD Technologist: MATTHEW Exam Location: [facility] Indication: Stasis. Pain HISTORY: Lower extremity pain. Stasis PROCEDURES: Venous duplex imaging was performed in bilateral lower extremities. The following venous structures were evaluated: common femoral vein, profunda vein, proximal portion of the greater saphenous vein, superficial femoral vein, and the popliteal vein. Bilaterally, the common femoral, superficial femoral, profunda femoral, popliteal, posterior tibial, greater saphenous veins, and the peroneal trunk were identified and interrogated in the standard fashion. These veins were found to be easily compressible with spontaneous blood flow. No evidence of insufficiency or thrombus noted. Serial compression, augmentation maneuvers, and spectral Doppler flow evaluation were performed. FINDINGS: Evidence of acute partial deep vein thrombosis in the right common and superficial femoral veins with normal flow dynamics. No additional DVT. CONCLUSIONS Acute right lower extremity deep venous thrombosis. No DVT left lower extremity. Dr. Mayra Frank DO (Electronically Signed) Final Date: 28 July 2023 13:25 S
--- NOTE | 2023-07-28 07:12 | CT_ITS ---
WS: [id number] CT CHEST ANGIOGRAPHY WITH REFORMATS HISTORY: evaluate for PE TECHNIQUE: Contiguous axial images are obtained through the chest during arterial injection of intrav enous contrast. Images are reconstructed to evaluate the pulmonary arteries. MIP imaging also reviewe d. All CT scans at [facility] use at least one of these dose optimization techniques: automat ed exposure control; mA and/or kV adjustment per patient size (includes targeted exams where dose is matched to clinical indication); or iterative reconstruction. CONTRAST: Omnipaque 350; 100 mL IV. DLP: 395.28 mGy.cm COMPARISON: Lung screening 06/05/2023 Opacification and evaluation of the pulmonary arteries is limited by motion and contrast opacificatio n. No large central filling defect or pulmonary emboli. Beginning in the proximal, segmental branching o f the LEFT lower lobe there are some multiple small filling defects consistent with pulmonary emboli. There is an additional larger and nearly occlusive emboli in the proximal segmental branches of the RIGHT lower lobe. There may be additional small nonocclusive emboli in LEFT upper lobe pulmonary embo li. No RIGHT heart strain. Cardiac chambers are enlarged. Small pericardial effusion. Mild hazy attenuati on throughout both lungs. Hazy attenuation is exacerbated by breathing motion artifact. There does ap pear to be small amount of fluid overload. No pleural effusion. No dense area of consolidation. Atherosclerosis aorta. Pulmonary artery size is equal to the aorta. Small mediastinal and hilar lymph nodes. Large hiatal hernia. Long-term stability of the RIGHT adrenal mass consistent with an adenoma measuring 1.8 cm. Mild hepatic steatosis. Mild increase in thoracic kyphosis. Mild anterior wedging of what is probably T11. CT/CT angio chest PE protcl [id number] IMPRESSION: 1. Bilateral lower lobe pulmonary emboli beginning in the proximal segmental b ranches. 2. No RIGHT heart strain. 3. Cardiomegaly. 4. Small pericardial effusion. 5. Mild pulmonary congestion. 6. Large hiatal hernia.
--- NOTE | 2023-07-28 07:38 | P.HP_ITS ---
Providers/Chief Complaint 2 Admitting Physician: Yeni Craig MD Primary Care Provider: ADAN Lopez Chief Complaint: dizziness History of Present Illness Divina Escobar is a 68 year old female with a past medical history of COPD, progressively increasing weakness over the last few weeks brought to the emergency room with chief complaints of chest pain. Patient states that the chest pain is located towards the center and left side of the chest, not radiating into the arm. No associated symptoms. No obvious exacerbating or relieving factors. She had similar pain 3 days ago without any apparent trigger. She states that she was evaluated by PCP for similar chest pain back in October 2022 at which time her echocardiogram was completely normal, LVEF of 70%, normal diastolic function. EKG was nonspecific. She did not have recurrence of chest pain until recently few weeks ago. At baseline patient does not walk much. She can get out of bed with assistance with a cane or walker however has not ambulated well in over a year. She requires assistance with ADLs. This has been attributed to COPD in the past but overall patient and are not certain as to the cause of this weakness. She is typically on home oxygen. Patient has had physical therapy at home however it has been limited by dizziness and near syncope and patient has not been able to participate much. Denies any fever chills cough or dyspnea. She has a past history of PE 20 years ago when she was admitted to the hospital with severe pneumonia and was nonambulatory for about a week. She remained on anticoagulation for a while afterwards but does not recall if she was ever expected to be on lifelong anticoagulation. Review of Systems 2 General: Reports: 10 or more systems reviewed and unremarkable except in HPI and below Const: Denies: fever(s), chills or body aches Eyes: Denies: change in vision, blurry vision or photophobia ENMT: Reports: hoarseness; Denies: throat pain, enlarged tonsils, odynophagia or nasal congestion Card: Denies: chest pain, palpitations, irregular heart rhythm, edema, swelling of feet/ankles, lightheadedness, pre-syncope, dyspnea on exertion or orthopnea Resp: Denies: dyspnea, productive cough, non-productive cough, wheezing, stridor, pain on inspiration, change in phlegm color, hemoptysis or chest congestion GI: Denies: abdominal pain, nausea, vomiting, hematemesis, coffee ground emesis, dysphagia, heartburn, diarrhea, constipation, GI cramping, change in stool character, hematochezia or melena : Denies: flank pain, difficulty voiding, dysuria, urinary frequency, urinary urgency, urinary hesitancy or hematuria Musc: Denies: neck pain, back pain, extremity pain, joint swelling, joint warmth or deformity Neuro: Denies: headache(s), numbness in extremities, weakness in extremities, sensory changes, difficulty walking, frequent falls, dizziness, vertigo, behavioral changes, Slurred speech present or seizure-like activity Psych: Denies: anxiety, depression, suicidal ideation or homicidal ideation Endo: Denies: polyuria, polydipsia, tired all the time, cold intolerance or hot flashes Vinay/Lymph: Denies: easy bruising or easy bleeding Medications/Allergies Home Medications Medication Instructions Recorded Confirmed Last Taken Type acetaminophen 500 mg tablet 1,000 mg PO Q6H PRN Pain 05/20/23 05/20/23 Unknown History aripiprazole 5 mg tablet 5 mg PO DAILY 05/20/23 05/20/23 Unknown History atorvastatin 40 mg tablet 40 mg PO [facility] 05/20/23 05/20/23 05/20/23 History clopidogrel 75 mg tablet (Plavix) 75 mg PO QA 05/20/23 05/20/23 05/20/23 History fluoxetine 40 mg capsule (Prozac) 40 mg PO DAILY 05/20/23 05/20/23 05/20/23 History lisinopril 40 mg tablet 40 mg PO DAILY@15 05/20/23 05/20/23 Unknown History oxybutynin chloride 5 mg 5 mg PO DAILY 05/20/23 05/20/23 Unknown History tablet,extended release 24 hr pantoprazole 40 mg tablet,delayed 40 mg PO BID 05/20/23 05/20/23 05/20/23 History release potassium chloride 10 mEq 10 meq PO QAM 05/20/23 05/20/23 05/20/23 History tablet,extended release Allergies Allergy/AdvReac Type Severity Reaction Status Date / Time aspirin Allergy ADR-Gastrointestinal Verified 05/20/23 15:58 Upset codeine Allergy ADR-Headach Verified 05/20/23 15:58 e Penicillins Allergy ALGY-Rash Verified 05/20/23 15:58 PFSH Acute 2 PFSH: Medical History (Updated 07/28/23 @ 07:46 by Yeni Craig MD) Leg swelling Hypertension Chronic hypoxemic respiratory failure COPD (chronic obstructive pulmonary disease) Vitals/I&O/Wt Last Vital Signs Temp 97.8 F 07/28/23 07:30 Pulse 80 07/28/23 07:30 Resp 17 07/28/23 07:30 BP 101/51 07/28/23 07:30 Pulse Ox 94 07/28/23 07:30 O2 Del Method Nasal Cannula 07/28/23 05:39 O2 Flow Rate 2 07/28/23 07:19 07/27/23 07/28/23 07/28/23 22:59 06:59 14:59 Intake Total 120 / 120 Balance 120 / 120 Weight last 48 hrs Weight 87.952 kg Weight 88.088 kg Weight 103.419 kg Physical Exam 2 Narrative: General: No acute distress, AO x3 HEENT: PERRLA, pupils bilaterally equal and reactive, pallors not present Chest: Normal vesicular breath sounds, no added sounds, equal good air entry bilaterally CVS: S1-S2 regular, no murmurs, no tachycardia, no gallops, no rubs Abdomen: Soft, nontender, no organomegaly, bowel sounds present Neuro: No focal deficits, no facial deformity, AO x3, power 5/5 in all limbs ext: LE non pitting edema Data 07/27/23 23:34 07/27/23 23:34 Other Labs: CT/CT head wo con* [id number] IMPRESSION: Negative for acute intracranial pathology. XR/XR chest 1V portable [id number] IMPRESSION: Negative for focal acute pulmonary disease. A&P Assessment and plan (1) Chest pain: Patient presenting to the hospital with chief complaints of chest pain. EKG is without any acute ST-T wave changes. Troponin at baseline of 30, at 27 at 2 hours and 38 at 6 hours without significant delta. Low concern for acute [place] Has a past medical history of pulmonary embolism, will obtain CTA of the chest as patient has essentially been nonambulatory and remains at risk for development of DVT/PE. Additionally has lower extremity edema, will check lower extremity Doppler to assess for the same. As needed morphine for pain management. Currently she is chest pain-free after having received morphine in the ER. If CTA remains negative may need further ischemic evaluation with a stress test. Qualifiers: Chest pain type: unspecified Qualified Code(s): R07.9 - Chest pain, unspecified (2) Generalized muscle weakness: Generalized muscle weakness, this has been progressing over the past several months. Patient has been getting home PT but has been limited by dizziness, possible presyncope Will order PT OT assessment here. Check baseline CK to assess for rhabdomyolysis Neuro no focal neurological deficits on exam to suggest stroke as the underlying cause. Plan DVT prophylaxis: Lovenox 40 mg Full code Attestations 2 Medical Necessity Statement*: Anticipate less than 2 midnight stay at this time Diagnoses Chest pain, unspecified type R07.9 Chest pain type: unspecified Generalized muscle weakness M62.81
[2023-07-28] MEDS: iohexol 350 mg/mL 500 mL Btl (per mL) IV (08:07)
--- NOTE | 2023-07-28 09:22 | PC.PHAR ---
[id number] PT MEDICATIONS.
[2023-07-28] MEDS: ARIPiprazole 10 mg Tablet 5 MG PO (10:49)
[2023-07-28] MEDS: fluoxetine 20 mg Capsule 40 MG PO (10:50)
[2023-07-28] MEDS: pantoprazole DR 40 mg Tablet PO ×2 (10:50→17:28)
[2023-07-28] MEDS: enoxaparin 100 mg/mL Syringe 90 MG SUBCUT ×2 (12:41→22:56)
--- NOTE | 2023-07-28 14:05 | PM.MISC ---
Miscellaneous Note Note: seen today CT shows PE venous dopplers pending lovenox on board
[2023-07-28] MEDS: morphine 4 mg/mL SDV 1 mL 2 MG IVP ×2 (14:59→22:55)
--- NOTE | 2023-07-28 16:46 | PC.OT ---
OT EVALUATION ATTEMPTED THIS P.M. PATIENT SLEEPING SOUNDLY AND VISITOR REQUESTS TO ALLOW PATIENT TO SLEEP.
[2023-07-29] VITALS (13 sets, daily range): BP systolic 96–121; BP diastolic 61–76; PULSE 72–90; RESP 16–18; TEMP 36.4–36.7; O2SAT 96–98
[2023-07-29] MEDS: morphine 4 mg/mL SDV 1 mL 2 MG IVP ×3 (03:46→15:04)
[2023-07-29 05:26] LABS: Basophils % 0.5 %; Eosinophils # 0.1 10^3/uL (0.0-0.8); Eosinophils % 1.6 %; Hematocrit 33.9 % (36-47); Lymphocytes % 25.9 %; Mean Corpuscular HGB Conc 31.3 g/dL (30-55); Mean Corpuscular Hemoglobin 31.5 pg (27-33); Mean Corpuscular Volume 100.6 fl (85-98); Mean Platelet Volume 11.8 fL (7.4-10.4); Monocytes # 0.4 10^3/uL (0.2-0.9); Monocytes % 9.8 %; Neutrophils % 62.2 %; Nucleated Red Blood Cells % 0 %; Platelet Count 111 10^3/cmm (157-399); Red Blood Count 3.37 10^6/uL (3.85-5.65); Red Cell Distribution Width 13.7 % (12.1-15.1); White Blood Count 3.86 10^3/uL (3.29-11.43)
[2023-07-29] MEDS: clopidogrel 75 mg Tablet PO (05:26)
[2023-07-29] MEDS: atorvastatin 40 mg Tablet PO (05:26)
[2023-07-29 05:49] LABS: Alanine Aminotransferase 6 U/L (0-33); Alkaline Phosphatase 62 U/L (35-105); Anion Gap 13.6 (5-19); Aspartate Amino Transferase 14 U/L (0-32); Blood Urea Nitrogen 4 mg/dL (8-23); Calcium 8.7 mg/dL (8.5-10.5); Carbon Dioxide 31 mmol/L (22-29); Chloride 100 mmol/L (98-107); Glomerular Filtration Rate 158.7 mL/min (90-130); Glucose 84 mg/dL (65-115); Osmolality Calculated 288 mOsm/kg (285-295); Potassium 3.6 mmol/L (3.5-5.1); Sodium 141 mmol/L (136-145); Total Bilirubin 0.4 mg/dL (0.15-1.2)
[2023-07-29 05:52] LABS: Creatinine Clr Calc Pharmacy 69.0867
[2023-07-29] MEDS: pantoprazole DR 40 mg Tablet PO ×2 (08:20→17:26)
[2023-07-29] MEDS: ARIPiprazole 10 mg Tablet 5 MG PO (08:20)
[2023-07-29] MEDS: fluoxetine 20 mg Capsule 40 MG PO (08:20)
--- NOTE | 2023-07-29 09:59 | PC.CHAP ---
Pastoral Care Encounter/Spiritual Assessment Type of Contact [] Declined skid road worker visit [] Patient/Family/Request visit [] Outpatient visit [] Follow-up visit [] Physician referral [] Code/Alert [] Routine visit [] Staff referral [] Actively dying [] Patient sleeping [] Family support [] [] Out of room [] Palliative care [] [x] Receiving care in room [] Pre-surgical visit [] Trauma [] Long length of stay [] ICU visit [] Other: Relational/Emotional Strength [] Patient feels connected with others/family/visitors/staff [] Distress [] Loneliness/isolation [] Abandonment Spirituality of Patient [] Person of Katherine [] Attends Mandaeism of their Katherine [] Believes in Prayer [] Reads Bible or Bahai materials [] There are Spiritual issues to be addressed Collections Assistant Interventions [] Prayer [] Active listening [] Non-anxious presence [] Spiritual/emotional support [] Crisis/trauma care [] Spiritual counseling [] Bereavement support [] Provided bereavement packet [] Provided Bible/devotional materials [] Provided toy/stuffed animal, coloring book to patient or family member [] Provided Communion [] Anointing/[place] [] Salvation [] Completed spiritual assessment [] Other: Impact on Illness or Injury [] Angry [] Fearful [] Anxious [] Often cries [] Exhaustion [] Unable to work [] Unable to attend zoroastrianism [] Unable to walk/stand [] Unable to read [] Unable to drive [] Unable to eat/drink [] Unable to sleep [] Unable to be with family [] Patient intubated [] Other: Summary Time spent with patient
[2023-07-29] MEDS: enoxaparin 100 mg/mL Syringe 90 MG SUBCUT (11:49)
[2023-07-29 12:07] LABS: Add Urine Microscopic? YES; Bilirubin Urine 1+ (Negative); Blood Urine 3+ (Negative); Glucose Urine UA Norm (Normal); Ketones Urine 1+ (Negative); Leukocyte Esterase Urine 2+ (Negative); Nitrate Urine Negative (Negative); Protein Urine 2+ (Negative); Urine Appearance Cloudy (CLEAR); Urine Color Yellow (Yellow); Urobilinogen Urine 4 mg/dL (Negative); pH Urine 6 (5-7)
[2023-07-29 12:11] LABS: Add Urine Culture? Yes; Bacteria Urine 2+ /hpf; RBC Urine 15-25 /hpf (0-2); Transitional Epi Cells Urine 0-4 /hpf; WBC Urine 55-80 /hpf (0-5)
[2023-07-29] MEDS: levofloxacin-dextrose 5 % 750 MG/150 ML PREMIX 100 MG IV (13:27)
--- NOTE | 2023-07-29 14:05 | P.PN_ITS ---
Subjective 2 Subjective: seen this am no acute events overnight pt interested in going to rehab ua positive for leuk esterase 55-100 wbc Vitals/I&O/Wt Last Vital Signs Temp 97.6 F 07/29/23 07:23 Pulse 74 07/29/23 11:21 Resp 17 07/29/23 11:21 BP 98/64 07/29/23 11:21 Pulse Ox 96 07/29/23 11:21 O2 Del Method Nasal Cannula 07/29/23 11:21 O2 Flow Rate 2 07/29/23 11:21 07/28/23 07/29/23 07/29/23 22:59 06:59 14:59 Intake Total 120 / 480 180 / 180 Output Total 50 / 50 Balance 70 / 430 180 / 180 Weight last 48 hrs Weight 87.407 kg Weight 87.952 kg Weight 88.088 kg Weight 103.419 kg Physical Exam 2 Narrative: General: No acute distress, AO x3 HEENT: PERRLA, pupils bilaterally equal and reactive, pallors not present Chest: Normal vesicular breath sounds, no added sounds, equal good air entry bilaterally CVS: S1-S2 regular, no murmurs, no tachycardia, no gallops, no rubs Abdomen: Soft, nontender, no organomegaly, bowel sounds present Neuro: No focal deficits, no facial deformity, AO x3, power 5/5 in all limbs ext: LE non pitting edema Data 07/29/23 04:59 07/29/23 04:59 A&P Assessment and plan (1) Chest pain: Patient presenting to the hospital with chief complaints of chest pain. EKG is without any acute ST-T wave changes. Troponin at baseline of 30, at 27 at 2 hours and 38 at 6 hours without significant delta. Low concern for acute [place] Has a past medical history of pulmonary embolism, will obtain CTA of the chest as patient has essentially been nonambulatory and remains at risk for development of DVT/PE. Additionally has lower extremity edema, will check lower extremity Doppler to assess for the same. As needed morphine for pain management. Currently she is chest pain-free after having received morphine in the ER. If CTA remains negative may need further ischemic evaluation with a stress test. Qualifiers: Chest pain type: unspecified Qualified Code(s): R07.9 - Chest pain, unspecified (2) Generalized muscle weakness: Generalized muscle weakness, this has been progressing over the past several months. Patient has been getting home PT but has been limited by dizziness, possible presyncope Will order PT OT assessment here. Check baseline CK to assess for rhabdomyolysis Neuro no focal neurological deficits on exam to suggest stroke as the underlying cause. Plan DVT prophylaxis: Lovenox 40 mg Full code Todays plan 07/28 - right le dvt on dopplers - pe b/l subsegmental - continue therapeutic lovenox - switch to eliquis at dc - will need lifelong AC, pt has hx of PE - early ambulation encouraged - PT/OT - appreciate recs - check orthostatic vitals - ua suggestive of UTI. pt symptomatic - tx with levaquin 750 qd x7d - awaiting NH placement for rehab after Ucx results Attestations 2 Medical Necessity Statement*: awaiting placement to rehab Diagnoses Chest pain, unspecified type R07.9 Chest pain type: unspecified Generalized muscle weakness M62.81
[2023-07-29] MEDS: acetaminophen 325 mg Tablet 650 MG PO (20:38)
[2023-07-30] VITALS (9 sets, daily range): BP systolic 104–163; BP diastolic 62–97; PULSE 47–108; RESP 17–18; TEMP 36.3–36.6; O2SAT 96–99
[2023-07-30] MEDS: TRAMadol 50 mg Tablet PO ×4 (00:08→23:20)
[2023-07-30] MEDS: enoxaparin 100 mg/mL Syringe 90 MG SUBCUT ×3 (00:09→23:20)
[2023-07-30] MEDS: acetaminophen 325 mg Tablet 650 MG PO ×3 (03:07→18:37)
[2023-07-30] MEDS: clopidogrel 75 mg Tablet PO (05:02)
[2023-07-30] MEDS: atorvastatin 40 mg Tablet PO (05:02)
[2023-07-30 06:11] LABS: Basophils % 0.3 %; Eosinophils # 0.1 10^3/uL (0.0-0.8); Eosinophils % 1.8 %; Hematocrit 32.3 % (36-47); Lymphocytes % 28.3 %; Mean Corpuscular HGB Conc 31.6 g/dL (30-55); Mean Corpuscular Hemoglobin 31.1 pg (27-33); Mean Corpuscular Volume 98.5 fl (85-98); Mean Platelet Volume 11.6 fL (7.4-10.4); Monocytes # 0.4 10^3/uL (0.2-0.9); Monocytes % 11.9 %; Neutrophils # 1.93 10^3/uL (1.8-7.7); Neutrophils % 57.4 %; Nucleated Red Blood Cells % 0 %; Platelet Count 102 10^3/cmm (157-399); Red Blood Count 3.28 10^6/uL (3.85-5.65); Red Cell Distribution Width 13.5 % (12.1-15.1); White Blood Count 3.36 10^3/uL (3.29-11.43)
[2023-07-30 06:28] LABS: Anion Gap 12.2 (5-19); Blood Urea Nitrogen 2 mg/dL (8-23); Calcium 8.5 mg/dL (8.5-10.5); Carbon Dioxide 31 mmol/L (22-29); Chloride 100 mmol/L (98-107); Creatinine Clr Calc Pharmacy 69.5304; Glomerular Filtration Rate 158.7 mL/min (90-130); Glucose 83 mg/dL (65-115); Osmolality Calculated 285 mOsm/kg (285-295); Potassium 3.2 mmol/L (3.5-5.1); Sodium 140 mmol/L (136-145)
[2023-07-30] MEDS: fluoxetine 20 mg Capsule 40 MG PO (08:08)
[2023-07-30] MEDS: pantoprazole DR 40 mg Tablet PO ×2 (08:08→18:37)
[2023-07-30] MEDS: ARIPiprazole 10 mg Tablet 5 MG PO (08:08)
[2023-07-30] MEDS: potassium chloride ER 20 mEq Tablet 40 MEQ PO (09:43)
--- NOTE | 2023-07-30 12:19 | P.PN_ITS ---
Subjective 2 Subjective: seen today resting comfortably in bed Vitals/I&O/Wt Last Vital Signs Temp 97.9 F 07/30/23 08:00 Pulse 82 07/30/23 08:20 Resp 18 07/30/23 08:20 BP 114/62 07/30/23 08:00 Pulse Ox 96 07/30/23 08:20 O2 Del Method Nasal Cannula 07/30/23 08:20 O2 Flow Rate 2 07/30/23 08:20 07/29/23 07/30/23 07/30/23 22:59 06:59 14:59 Intake Total 510 / 690 400 / 1090 Output Total 100 / 100 Balance 510 / 690 300 / 990 Weight last 48 hrs Weight 88.451 kg Weight 87.407 kg Physical Exam 2 Narrative: General: No acute distress, AO x3 Chest: Normal vesicular breath sounds, no added sounds, equal good air entry bilaterally CVS: S1-S2 regular, no murmurs, no tachycardia, no gallops, no rubs Abdomen: Soft, nontender bowel sounds present Neuro: No focal deficits, no facial deformity, AO x3, ext: LE non pitting edema Data 07/30/23 05:39 07/30/23 05:39 Micro: Microbiology 07/29/23 11:28 Urine Culture - Preliminary Urine,Clean Catch Gram Negative Rods Gram Negative Rods#2 A&P Assessment and plan (1) Chest pain: Patient presenting to the hospital with chief complaints of chest pain. EKG is without any acute ST-T wave changes. Troponin at baseline of 30, at 27 at 2 hours and 38 at 6 hours without significant delta. Low concern for acute [place] Has a past medical history of pulmonary embolism, will obtain CTA of the chest as patient has essentially been nonambulatory and remains at risk for development of DVT/PE. Additionally has lower extremity edema, will check lower extremity Doppler to assess for the same. As needed morphine for pain management. Currently she is chest pain-free after having received morphine in the ER. If CTA remains negative may need further ischemic evaluation with a stress test. Qualifiers: Chest pain type: unspecified Qualified Code(s): R07.9 - Chest pain, unspecified (2) Generalized muscle weakness: Generalized muscle weakness, this has been progressing over the past several months. Patient has been getting home PT but has been limited by dizziness, possible presyncope Will order PT OT assessment here. Check baseline CK to assess for rhabdomyolysis Neuro no focal neurological deficits on exam to suggest stroke as the underlying cause. Plan DVT prophylaxis: Lovenox 40 mg Full code Todays plan 07/29 - right le dvt on dopplers - pe b/l subsegmental - continue therapeutic lovenox - switch to eliquis at dc - will need lifelong AC, pt has hx of PE - early ambulation encouraged - PT/OT - appreciate recs - check orthostatic vitals - ua suggestive of UTI. pt symptomatic - tx with levaquin 750 qd x7d - awaiting NH placement for rehab after Ucx results Attestations 2 Medical Necessity Statement*: awaiting placement to rehab Diagnoses Chest pain, unspecified type R07.9 Chest pain type: unspecified Generalized muscle weakness M62.81
[2023-07-30] MEDS: levofloxacin-dextrose 5 % 750 MG/150 ML PREMIX 150 MG IV (12:50)
[2023-07-30 15:04] LABS: CENTROMERE B ANTIBODY >8.0 POS AI (<1.0 NEG); JO-1 ANTIBODY <1.0 NEG AI (<1.0 NEG); RNP ANTIBODY <1.0 NEG AI (<1.0 NEG); SCL-70 ANTIBODY <1.0 NEG AI (<1.0 NEG); SJOGREN'S ANTIBODY (SS-A) <1.0 NEG AI (<1.0 NEG); SM ANTIBODY <1.0 NEG AI (<1.0 NEG); SS-B <1.0 NEG AI (<1.0 NEG)
[2023-07-30 16:09] LABS: COMPLEMENT COMPONENT C3C 94 mg/dL (83-193); COMPLEMENT COMPONENT C4C 25 mg/dL (15-57); COMPLEMENT, TOTAL (CH50) 52 U/mL (31-60)
[2023-07-31] VITALS (10 sets, daily range): BP systolic 114–136; BP diastolic 68–81; PULSE 71–95; RESP 16–19; TEMP 36.5–36.7; O2SAT 97–99; BMI 35.4
[2023-07-31] MEDS: acetaminophen 325 mg Tablet 650 MG PO ×3 (03:05→23:21)
[2023-07-31] MEDS: clopidogrel 75 mg Tablet PO (05:08)
[2023-07-31] MEDS: atorvastatin 40 mg Tablet PO (05:08)
[2023-07-31] MEDS: TRAMadol 50 mg Tablet PO ×2 (06:42→15:33)
[2023-07-31 07:15] LABS: THYROID PEROXIDASE ANTIBODIES <1 IU/mL (<9)
[2023-07-31 07:24] LABS: Basophils % 0.5 %; Eosinophils # 0.1 10^3/uL (0.0-0.8); Eosinophils % 1.6 %; Hematocrit 34.1 % (36-47); Lymphocytes % 27.3 %; Mean Corpuscular Hemoglobin 31.1 pg (27-33); Mean Corpuscular Volume 97.4 fl (85-98); Mean Platelet Volume 12.1 fL (7.4-10.4); Monocytes # 0.4 10^3/uL (0.2-0.9); Monocytes % 11.5 %; Neutrophils # 2.15 10^3/uL (1.8-7.7); Neutrophils % 58.8 %; Nucleated Red Blood Cells % 0 %; Platelet Count 106 10^3/cmm (157-399); Red Cell Distribution Width 13.6 % (12.1-15.1); White Blood Count 3.66 10^3/uL (3.29-11.43)
[2023-07-31 07:36] LABS: Anion Gap 10.6 (5-19); Blood Urea Nitrogen 3 mg/dL (8-23); Calcium 8.8 mg/dL (8.5-10.5); Carbon Dioxide 30 mmol/L (22-29); Chloride 104 mmol/L (98-107); Creatinine Clr Calc Pharmacy 69.3375; Glomerular Filtration Rate 158.7 mL/min (90-130); Glucose 86 mg/dL (65-115); Osmolality Calculated 288 mOsm/kg (285-295); Potassium 3.6 mmol/L (3.5-5.1); Sodium 141 mmol/L (136-145)
[2023-07-31] MEDS: fluoxetine 20 mg Capsule 40 MG PO (08:24)
[2023-07-31] MEDS: pantoprazole DR 40 mg Tablet PO ×2 (08:24→17:20)
[2023-07-31] MEDS: ARIPiprazole 10 mg Tablet 5 MG PO (08:24)
[2023-07-31 09:04] LABS: SARS Covid-2 Antigen negative (Negative)
[2023-07-31] MEDS: enoxaparin 100 mg/mL Syringe 90 MG SUBCUT (12:35)
[2023-07-31] MEDS: levofloxacin-dextrose 5 % 750 MG/150 ML PREMIX 100 MG IV (12:35)
--- NOTE | 2023-07-31 12:36 | P.PN_ITS ---
Subjective 2 Subjective: seen today resting comfortably in bed Vitals/I&O/Wt Last Vital Signs Temp 98.0 F 07/31/23 11:19 Pulse 83 07/31/23 11:19 Resp 16 07/31/23 11:19 BP 122/70 07/31/23 11:19 Pulse Ox 98 07/31/23 11:19 O2 Del Method Nasal Cannula 07/31/23 11:19 O2 Flow Rate 2 07/31/23 11:19 07/30/23 07/31/23 07/31/23 22:59 06:59 14:59 Intake Total 750 / 1580 240 / 1820 240 / 240 Output Total 800 / 800 Balance -50 / 780 240 / 1020 240 / 240 Weight last 48 hrs Weight 87.997 kg Weight 88.451 kg Physical Exam 2 Narrative: General: No acute distress, AO x3 Chest: Normal vesicular breath sounds, no added sounds, equal good air entry bilaterally CVS: S1-S2 regular, no murmurs, no tachycardia, no gallops, no rubs Abdomen: Soft, nontender bowel sounds present Neuro: No focal deficits, no facial deformity, AO x3, ext: LE non pitting edema Data 07/31/23 06:35 07/31/23 06:35 Micro: Microbiology 07/29/23 11:28 Urine Culture - Final Urine,Clean Catch Escherichia coli Proteus mirabilis A&P Assessment and plan (1) Chest pain: Patient presenting to the hospital with chief complaints of chest pain. EKG is without any acute ST-T wave changes. Troponin at baseline of 30, at 27 at 2 hours and 38 at 6 hours without significant delta. Low concern for acute [place] Has a past medical history of pulmonary embolism, will obtain CTA of the chest as patient has essentially been nonambulatory and remains at risk for development of DVT/PE. Additionally has lower extremity edema, will check lower extremity Doppler to assess for the same. As needed morphine for pain management. Currently she is chest pain-free after having received morphine in the ER. If CTA remains negative may need further ischemic evaluation with a stress test. Qualifiers: Chest pain type: unspecified Qualified Code(s): R07.9 - Chest pain, unspecified (2) Generalized muscle weakness: Generalized muscle weakness, this has been progressing over the past several months. Patient has been getting home PT but has been limited by dizziness, possible presyncope Will order PT OT assessment here. Check baseline CK to assess for rhabdomyolysis Neuro no focal neurological deficits on exam to suggest stroke as the underlying cause. Plan DVT prophylaxis: Lovenox 40 mg Full code Todays plan 07/30 - right le dvt on dopplers - pe b/l subsegmental - stop therapeutic lovenox - switch to eliquis today - will need lifelong AC, pt has hx of PE - early ambulation encouraged - PT/OT - appreciate recs - check orthostatic vitals - neg - ua suggestive of UTI. pt symptomatic - tx with levaquin 750 qd x7d - awaiting NH placement for rehab urine culture results reviewed Attestations 2 Medical Necessity Statement*: awaiting placement to rehab Diagnoses Chest pain, unspecified type R07.9 Chest pain type: unspecified Generalized muscle weakness M62.81
[2023-07-31] MEDS: lactulose oral liq 20 gm/30 mL UDC PO (17:20)
[2023-07-31] MEDS: apixaban 5 mg Tablet 10 MG PO (20:43)
[2023-08-01] VITALS (7 sets, daily range): BP systolic 117–145; BP diastolic 71–82; PULSE 76–97; RESP 16–17; TEMP 36.7–36.9; O2SAT 90–100
[2023-08-01] MEDS: TRAMadol 50 mg Tablet PO ×2 (03:38→11:44)
[2023-08-01 05:02] LABS: Basophils % 0.7 %; Eosinophils # 0.1 10^3/uL (0.0-0.8); Eosinophils % 2.5 %; Hematocrit 33.2 % (36-47); Lymphocytes # 0.9 10^3/uL (0.8-4.8); Lymphocytes % 32.3 %; Mean Corpuscular Hemoglobin 30.6 pg (27-33); Mean Corpuscular Volume 98.5 fl (85-98); Mean Platelet Volume 11.7 fL (7.4-10.4); Monocytes # 0.3 10^3/uL (0.2-0.9); Monocytes % 10.8 %; Neutrophils # 1.48 10^3/uL (1.8-7.7); Nucleated Red Blood Cells % 0 %; Platelet Count 104 10^3/cmm (157-399); Red Blood Count 3.37 10^6/uL (3.85-5.65); Red Cell Distribution Width 13.7 % (12.1-15.1); White Blood Count 2.79 10^3/uL (3.29-11.43)
[2023-08-01 05:29] LABS: Anion Gap 12.2 (5-19); Blood Urea Nitrogen 3 mg/dL (8-23); Calcium 8.8 mg/dL (8.5-10.5); Carbon Dioxide 29 mmol/L (22-29); Chloride 103 mmol/L (98-107); Glomerular Filtration Rate 158.7 mL/min (90-130); Glucose 83 mg/dL (65-115); Osmolality Calculated 288 mOsm/kg (285-295); Potassium 3.2 mmol/L (3.5-5.1); Sodium 141 mmol/L (136-145)
[2023-08-01] MEDS: clopidogrel 75 mg Tablet PO (05:41)
[2023-08-01] MEDS: atorvastatin 40 mg Tablet PO (05:41)
[2023-08-01 05:42] LABS: Creatinine Clr Calc Pharmacy 69.9159
[2023-08-01] MEDS: pantoprazole DR 40 mg Tablet PO (08:51)
[2023-08-01] MEDS: ARIPiprazole 10 mg Tablet 5 MG PO (08:51)
[2023-08-01] MEDS: fluoxetine 20 mg Capsule 40 MG PO (08:51)
[2023-08-01] MEDS: apixaban 5 mg Tablet 10 MG PO (08:51)
[2023-08-01 10:30] LABS: ANA PATTERN Nuclear, Centromere; ANA SCREEN, IFA POSITIVE (NEGATIVE)
--- NOTE | 2023-08-01 12:24 | P.DS_ITS ---
Discharge Providers Date of Admission: 07/28/23 03:48 Date of Discharge: August 01, 2023 Attending Provider at Admission: Yeni Craig MD Attending Provider at Discharge: Taryn Smith MD Primary Care Provider: ADAN Lopez Diagnoses at Discharge Discharge Diagnosis (1) Chest pain: Status: Resolved Qualifiers: Chest pain type: unspecified Qualified Code(s): R07.9 - Chest pain, unspecified (2) Generalized muscle weakness: Status: Resolved Reason for Visit Reason for Visit: dizziness Hospital Course Hospital Course Patient was admitted for complaint of chest pain. Does have a past history of pulmonary embolism. CTA showed bilateral pulmonary embolism no right heart strain. Lower extremity Doppler showed acute right DVT. Patient was placed on therapeutic Lovenox during hospitalization and switch to Eliquis at discharge. PT evaluated patient and initially patient was able to walk 40 feet however she wanted to go to rehab therefore referrals were sent. Patient did not qualify by insurance and authorization was not obtained. Patient was physically better weakness had improved. Orthostatics were negative. At that point it was discussed with family and patient elected to go home. She was discharged home in stable condition. Case management offered home health. Urine culture results reviewed patient found to have UTI. Levaquin ordered at discharge. VIJAY profile was positive. Centromere antibody positive. Patient given rheumatology referral at discharge along with hematology for further management and workup. She remained in baseline oxygen requirement at discharge. Physical Exam Narrative: General: No acute distress, AO x3 Chest: Normal vesicular breath sounds, no added sounds, equal good air entry bilaterally CVS: S1-S2 regular, no murmurs, no tachycardia, no gallops, no rubs Abdomen: Soft, nontender bowel sounds present Neuro: No focal deficits, no facial deformity, AO x3, ext: LE non pitting edema Discharge Data Studies Completed and Pending Completed Studies During Hospitalization Category Date Time Status CT head wo con* [id number] Stat Cat Scan 07/27/23 23:28 Completed CTA PE [CT angio chest PE protcl [id number]] Routine Cat Scan 07/28/23 07:12 Completed XR chest 1V portable [id number] Stat Exams 07/27/23 23:28 Completed US venous duplex lower extremity bilat [CV venous Ultrasound 07/28/23 07:12 [place] [id number]] Routine Pending at discharge Category Date Time Status VIJAY Profile Rheumatology AM LABS Lab 07/29/23 04:59 Results Radiology Impressions Chest X-Ray 07/27/23 23:28 IMPRESSION: Negative for focal acute pulmonary disease. Head CT 07/27/23 23:28 IMPRESSION: Negative for acute intracranial pathology. Chest CTA 07/28/23 07:12 IMPRESSION: 1. Bilateral lower lobe pulmonary emboli beginning in the proximal segmental branches. 2. No RIGHT heart strain. 3. Cardiomegaly. 4. Small pericardial effusion. 5. Mild pulmonary congestion. 6. Large hiatal hernia. Laboratory Results WBC 2.79 10^3/uL (3.29-11.43) L 08/01/23 04:44 RBC 3.37 10^6/uL (3.85-5.65) L 08/01/23 04:44 Hgb 10.30 g/dL (11.27-16.99) L 08/01/23 04:44 Hct 33.2 % (36-47) L 08/01/23 04:44 MCV 98.5 fl (85-98) H 08/01/23 04:44 MCH 30.6 pg (27-33) 08/01/23 04:44 MCHC 31.0 g/dL (30-55) 08/01/23 04:44 RDW 13.7 % (12.1-15.1) 08/01/23 04:44 Plt Count 104 10^3/cmm (157-399) L 08/01/23 04:44 MPV 11.7 fL (7.4-10.4) H 08/01/23 04:44 Neut % (Auto) 53.0 % 08/01/23 04:44 Lymph % (Auto) 32.3 % 08/01/23 04:44 [place] % (Auto) 10.8 % 08/01/23 04:44 Eos % (Auto) 2.5 % 08/01/23 04:44 Baso % (Auto) 0.7 % 08/01/23 04:44 Neut # (Auto) 1.48 10^3/uL (1.8-7.7) L 08/01/23 04:44 Lymph # (Auto) 0.9 10^3/uL (0.8-4.8) 08/01/23 04:44 [place] # (Auto) 0.3 10^3/uL (0.2-0.9) 08/01/23 04:44 Eos # (Auto) 0.1 10^3/uL (0.0-0.8) 08/01/23 04:44 Baso # (Auto) 0.0 10^3/uL (0.0-0.1) 08/01/23 04:44 Nucleated RBC % (auto) 0 % 08/01/23 04:44 Nucleated RBCs # 0.0 /100WBC 08/01/23 04:44 D-Dimer 0.90 ug/mLFEU (0-0.59) H 07/27/23 22:34 Sodium 141 mmol/L (136-145) 08/01/23 04:44 Potassium 3.2 mmol/L (3.5-5.1) L 08/01/23 04:44 Chloride 103 mmol/L (98-107) 08/01/23 04:44 Carbon Dioxide 29 mmol/L (22-29) 08/01/23 04:44 Anion Gap 12.2 (5-19) 08/01/23 04:44 BUN 3 mg/dL (8-23) L 08/01/23 04:44 Creatinine 0.4 mg/dL (0.5-0.9) L 08/01/23 04:44 GFR Calculation 158.7 mL/min (90-130) H 08/01/23 04:44 Glucose 83 mg/dL (65-115) 08/01/23 04:44 Calculated Osmolality 288 mOsm/kg (285-295) 08/01/23 04:44 Calcium 8.8 mg/dL (8.5-10.5) 08/01/23 04:44 Total Bilirubin 0.4 mg/dL (0.15-1.2) 07/29/23 04:59 AST 14 U/L (0-32) 07/29/23 04:59 ALT 6 U/L (0-33) 07/29/23 04:59 Alkaline Phosphatase 62 U/L (35-105) 07/29/23 04:59 Creatine Kinase 78 U/L (26-192) 07/28/23 05:29 Troponin T Baseline 30 ng/L (0-10) H 07/27/23 23:34 Troponin T 120 Minute 27.74 ng/L (0-10) H 07/28/23 01:21 Delta Troponin T -2.26 ABS# (0-10) L 07/28/23 01:21 Troponin T Hi Sens 6Hr 38.76 ng/L (0-10) H 07/28/23 05:29 Troponin T Hi Sens 6Hr Delta 8.76 ng/L (0-12) 07/28/23 05:29 Total Protein 5.0 g/dL (6.6-8.7) L 07/29/23 04:59 Albumin 3.0 g/dL (3.5-5.2) L 07/29/23 04:59 Globulin 2.0 g/dL (1.3-4.6) 07/29/23 04:59 TSH 2.27 uIU/mL (0.27-4.20) 07/28/23 05:29 Urine Color Yellow (Yellow) 07/29/23 11:28 Urine Appearance Cloudy (CLEAR) A 07/29/23 11:28 Urine pH 6 (5-7) 07/29/23 11:28 Ur Specific [place] 1.010 (1.005-1.030) 07/29/23 11:28 Urine Protein 2+ (Negative) H 07/29/23 11:28 Urine Glucose (UA) Norm (Normal) 07/29/23 11:28 Urine Ketones 1+ (Negative) H 07/29/23 11:28 Urine Blood 3+ (Negative) H 07/29/23 11:28 Urine Nitrate Negative (Negative) 07/29/23 11:28 Urine Bilirubin 1+ (Negative) H 07/29/23 11:28 Urine Urobilinogen 4 mg/dL (Negative) H 07/29/23 11:28 Ur Leukocyte Esterase 2+ (Negative) H 07/29/23 11:28 Urine RBC 15-25 /hpf (0-2) H 07/29/23 11:28 Urine WBC 55-80 /hpf (0-5) H 07/29/23 11:28 Ur Squamous Epith Cells 10-15 /hpf (0-5) H 07/29/23 11:28 Ur Transition Epith Cell 0-4 /hpf 07/29/23 11:28 Ur Renal Epithelial Cell Cancelled 07/27/23 23:37 Calcium Oxalate Crystal Cancelled 07/27/23 23:37 Uric Acid Crystals Cancelled 07/27/23 23:37 Triple Phos Crystals Cancelled 07/27/23 23:37 Other Crystals Cancelled 07/27/23 23:37 Amorphous Sediment Not Reportable 07/29/23 11:28 Urine Bacteria 2+ /hpf (NONE) H 07/29/23 11:28 Hyaline Casts Cancelled 07/27/23 23:37 Fine Granular Casts Cancelled 07/27/23 23:37 Coarse Granular Casts Cancelled 07/27/23 23:37 RBC Casts Cancelled 07/27/23 23:37 Other Casts Cancelled 07/27/23 23:37 Urine Mucus None /hpf 07/29/23 11:28 Urine Trichomonas Cancelled 07/27/23 23:37 Urine Yeast Cancelled 07/27/23 23:37 Urine Sperm Cancelled 07/27/23 23:37 Ur Oval Fat Bodies Cancelled 07/27/23 23:37 VIJAY Nuclear Membr Pat Nuclear, centromere A 07/29/23 04:59 VIJAY IFA Animal Tis Ttr 1:640 titer H 07/29/23 04:59 VIJAY IFA Animal Tis Res Positive (NEGATIVE) A 07/29/23 04:59 TIM-1 Antibody <1.0 neg AI (<1.0 NEG) 07/29/23 04:59 SS-A Antibody <1.0 neg AI (<1.0 NEG) 07/29/23 04:59 SS-B Antibody <1.0 neg AI (<1.0 NEG) 07/29/23 04:59 Sm (Weiss) Antibody <1.0 neg AI (<1.0 NEG) 07/29/23 04:59 BUNDLE BREAKER Antibody <1.0 neg AI (<1.0 NEG) 07/29/23 04:59 Scl-70 Antibody <1.0 neg AI (<1.0 NEG) 07/29/23 04:59 Centromere B Antibody >8.0 pos AI (<1.0 NEG) A 07/29/23 04:59 Thyroid Peroxidase Ab <1 IU/mL (<9) 07/29/23 04:59 Complement C3c 94 mg/dL (83-193) 07/29/23 04:59 Complement C4c 25 mg/dL (15-57) 07/29/23 04:59 CH50 Classical Pathway 52 U/mL (31-60) 07/29/23 04:59 SARS-CoV-2 Ag (Rapid) negative (Negative) 07/31/23 08:34 Vitals Last Vital Signs Temp 98.2 F 08/01/23 11:42 Pulse 88 08/01/23 11:42 Resp 16 08/01/23 11:42 BP 117/71 08/01/23 11:42 Pulse Ox 90 08/01/23 11:42 O2 Del Method Room Air 08/01/23 11:42 O2 Flow Rate 2 08/01/23 08:11 Discharge Plan Discharge Patient Disposition: Home Condition: Stable Prescriptions: New Eliquis 5 mg Tablet See Rx Instructions .ROUTE .COMPLEX Qty: 30 0RF Rx Instructions: 10 mg twice a day x 4 days then drop dose to 5 mg twice a day indefinitely. levofloxacin 500 mg tablet 500 mg PO DAILY 4 Days Qty: 4 0RF Continued atorvastatin 40 mg tablet 40 mg PO QAM potassium chloride 10 mEq tablet extended release 10 meq PO QAM pantoprazole 40 mg tablet,delayed release (DR/EC) 40 mg PO BID oxybutynin chloride 5 mg tablet extended release 24hr 5 mg PO DAILY aripiprazole 5 mg tablet 5 mg PO DAILY fluoxetine [Prozac] 40 mg Capsule 40 mg PO QAM clopidogrel [Plavix] 75 mg Tablet 75 mg PO QAM acetaminophen 500 mg Tablet 1,000 mg PO Q6H PRN (Reason: Pain) cyclobenzaprine 10 mg tablet 10 mg PO TID PRN (Reason: Muscle Spasm) tramadol 50 mg tablet 50 mg PO Q6H PRN (Reason: Pain) Held lisinopril 40 mg tablet 40 mg PO DAILY@15 Hold Instructions: see pcp Discharge Orders: Discharge Order (Routine); Ordered 08/01/23 Ordered By: Taryn Smith Referrals: [facility] [Outside] (We have notified your physician's clinic of the need for a follow-up appointment to be scheduled. If you have not heard from them within the next 2 business days, please call them directly. ) Kaleb Modi MD [Physician] - 1 week (We have notified your physician's clinic of the need for a follow-up appointment to be scheduled. If you have not heard from them within the next 2 business days, please call them directly. ) Kana Contreras MD [Hospitalist] - 1 week (We have notified your physician's clinic of the need for a follow-up appointment to be scheduled. If you have not heard from them within the next 2 business days, please call them directly. ) Lopez,ADAN Grier [Primary Care Provider] - 08/05/23 11:30 am Discharge Diet: Cardiac Discharge Activity: As per PT/OT instructions Patient Instructions: Levofloxacin (By mouth), Apixaban (By mouth), Weakness (GEN), Opioid Safety Discharge Attestations Time Spent in Discharge Care*: greater than 30 min Quality Metrics Clinical Quality Measures [ No reported AMI, CVA or VTE this stay] Coding Level of Care Code Acute Code for Chg Fwd Diagnoses Chest pain, unspecified type R07.9 Chest pain type: unspecified Generalized muscle weakness M62.81
[2023-08-01] MEDS: levofloxacin-dextrose 5 % 750 MG/150 ML PREMIX 100 MG IV (12:41)
[2023-08-01] MEDS: acetaminophen 325 mg Tablet 650 MG PO (13:52)
[2023-08-07 02:20] LABS: DNA AB (DS) CRITHIDIA,IFA NEGATIVE (NEGATIVE)
== END 2023-08-01 15:14 | disposition home or self-care (01) ==
LOC: ER 07-28 01:59 → MEDSURG 07-28 03:48
PROVIDERS: Nurse Practitioner Family; Admitting Provider Student in an Organized Health Care Education/Training Program; Emergency Provider Emergency Medicine; PCP Nurse Practitioner Family; Visit Provider Internal Medicine
DX: R07.9 Chest pain, unspecified (principal); M62.81 Muscle weakness (generalized); J44.9 Chronic obstructive pulmonary disease, unspecified; I10 Essential (primary) hypertension; I82.4Z1 Acute embolism and thrombosis of unspecified deep veins of right distal lower extremity
CPT/HCPCS: 36415; 70450; 71045; 71275; 80048; 80053; 81001; 81003; 82550; 84443; 84484; 85025; 85378; 86160; 86162; 86235; 86255; 86376; 87077; 87086; 87186; 87426; 93005; 93970; 96365; 96367; 96372; 96375; 96376; 97110; 97116; 97161; 97166; 97530; 99285; G0378; J1650; J1956; J2270; J2405; Q9967

== ENCOUNTER 2023-08-15 01:11 | Emergency (ER) | payer MEDICARE, SELFPAY ==
[2023-08-15 01:12] VITALS: BP 153/80; PULSE 98; RESP 20; TEMP 36.6; O2SAT 95; BMI 29.2
--- NOTE | 2023-08-15 01:17 | ECG_ITS ---
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 Measurements Intervals [place] Rate: 95 P: 19 MS: 138 QRS: -54 QRSD: 85 T: 31 QT: 277 QTc: 349 Interpretive Statements SINUS RHYTHM S1-S2-S3 PATTERN, CONSISTENT WITH PULMONARY DISEASE, RVH, OR NORMAL VARIANT LEFT ANTERIOR FASCICULAR BLOCK [QRS AXIS <= -45, QR IN I, RS IN II] POSSIBLE ANTERIOR MYOCARDIAL INFARCTION , PROBABLY OLD [30 ms Q WAVE IN V3/V4, OR R < 0.2 mV IN V4] Compared to ECG 07/28/2023 05:45:14 Right ventricular hypertrophy now present Left anterior fascicular block now present Myocardial infarct finding still present Electronically Signed On 08-15-2023 18:45:24 CDT by Cr Devine M.D. [email or web address]/[id number]
--- NOTE | 2023-08-15 01:17 | ED_ITS ---
HPI - Altered Mental Status 2 General: Chief Complaint: Weakness Stated Complaint: Weakness Time Seen by Provider: 08/15/23 01:17 History of Present Illness: Patient presents to the ER with complaints of unresponsiveness. Patient says he went to check on her about noon after her bath and she was sleeping and would not wake up so he just let her sleep until later in the night to try to wake her up again and she would not wake up, he called [phone] got there and she was more alert and arousable but very sleepy and groggy. They have decided to bring her in for further evaluation. Patient was just discharged from here with blood clots in her lungs or legs. Patient's currently taking Eliquis for this. Upon arrival here patient is alert and oriented x 4 and appears in no acute distress and is nontoxic. Review of Systems 2 General: Reports: 10 or more systems reviewed and unremarkable except in HPI and below PFSH ED 2 PFSH: Medical History Leg swelling Hypertension Chronic hypoxemic respiratory failure COPD (chronic obstructive pulmonary disease) Physical Exam 2 Const: COMMON NORMALS: no acute distress, average body habitus, patient oriented x3, no limitations, healthy appearing, alert and well nourished HENMT: COMMON NORMALS: normocephalic, atraumatic, hearing grossly normal bilaterally, external ears normal, Normal external nose present and moist oral mucous membranes HEAD & SCALP: normocephalic and atraumatic NOSE: Normal external nose present EXTERNAL EAR: Yes external ears normal Eye: COMMON NORMALS: Equal, round and reactive pupils present, EOMs intact bilaterally, conjunctivae normal and no scleral icterus CONJUNCTIVA: Yes conjunctivae normal PUPIL: Yes Equal, round and reactive pupils present Neck/C-Spine: COMMON NORMALS: no JVD Chest: COMMONS NORMALS: normal inspection of the chest and normal palpation of entire chest wall Resp: COMMON NORMALS: normal respiratory effort, No retractions, No use of accessory muscles and clear to auscultation bilaterally AUSCULTATION: clear to auscultation bilaterally Cardio: COMMON NORMALS: no JVD, regular rate, regular rhythm, S1 normal heart sound present, S2 normal heart sound present, No gallops present (Cardio), No clicks present (Cardio), No murmurs present (Cardio) and No rub (Cardio) R ATE: regular rate RHYTHM: regular rhythm HEART SOUNDS: S1 normal heart sound present and S2 normal heart sound present GI: COMMON NORMALS: Normal to inspection, nondistended, normoactive bowel sounds present, Soft to palpation, non-tender, No hepatosplenomegaly present and no masses PALPATION: Yes Soft to palpation and Yes No hepatosplenomegaly present Extremity: NARRATIVE EXTREMITY EXAM: Tenderness to palpation over right shoulder joint region. No obvious deformity or crepitus noted. Neuro: COMMON NORMALS: patient oriented x3 SENSORIUM/ORIENTATION: Yes alert Course 2 Vital Signs: Vital signs: Vital Signs Temperature 98 F 08/15/23 01:12 Pulse Rate 87 08/15/23 03:30 Respiratory Rate 16 08/15/23 03:30 Blood Pressure 165/76 08/15/23 03:30 Pulse Oximetry 93 08/15/23 03:30 Oxygen Delivery Me thod Nasal Cannula 08/15/23 03:30 Oxygen Flow Rate 2 08/15/23 03:30 MDM - Altered Mental Status Medical Decision Making Old records were reviewed, lab work was obtained which revealed a potassium of 2.9, chest x-ray showed findings compatible with pulmonary vascular congestion, head CT was negative, right shoulder x-ray preliminarily read by myself is negative. Patient was given 40 mEq potassium p.o. and 1 L of normal saline, patient's stay in the ER was unremarkable. These lab was was discussed with the patient and her . Patient's said she has not been taking her potassium because his big horse pills and she cannot always get them down. Patient will be switched over to liquid potassium. Lab Data 08/15/23 01:32 08/15/23 01:32 Radiology Impressions Chest X-Ray 08/15/23 01:24 IMPRESSION: Findings compatible with pulmonary vascular congestion. Infection can not be excluded. Recommend clinical correlation. Head CT 08/15/23 01:24 IMPRESSION: No acute intracranial abnormality. If symptoms persist, consider further evaluation with MRI, if MRI is clinically safe to obtain. Shoulder X-Ray 08/15/23 04:35 IMPRESSION: No acute findings. Laboratory Results WBC 9.61 10^3/uL (3.29-11.43) 08/15/23 01:32 RBC 3.92 10^6/uL (3.85-5.65) 08/15/23 01:32 Hgb 12.30 g/dL (11.27-16.99) 08/15/23 01:32 Hct 38.9 % (36-47) 08/15/23 01:32 MCV 99.2 fl (85-98) H 08/15/23 01:32 MCH 31.4 pg (27-33) 08/15/23 01:32 MCHC 31.6 g/dL (30-55) 08/15/23 01:32 RDW 13.5 % (12.1-15.1) 08/15/23 01:32 Plt Count 206 10^3/cmm (157-399) 08/15/23 01:32 MPV 11.3 fL (7.4-10.4) H 08/15/23 01:32 Neut % (Auto) 78.1 % 08/15/23 01:32 Lymph % (Auto) 9.9 % 08/15/23 01:32 [place] % (Auto) 11.1 % 08/15/23 01:32 Eos % (Auto) 0.3 % 08/15/23 01:32 Baso % (Auto) 0.1 % 08/15/23 01:32 Neut # (Auto) 7.50 10^3/uL (1.8-7.7) 08/15/23 01:32 Lymph # (Auto) 1.0 10^3/uL (0.8-4.8) 08/15/23 01:32 [place] # (Auto) 1.1 10^3/uL (0.2-0.9) H 08/15/23 01:32 Eos # (Auto) 0.0 10^3/uL (0.0-0.8) 08/15/23 01:32 Baso # (Auto) 0.0 10^3/uL (0.0-0.1) 08/15/23 01:32 Nucleated RBC % (auto) 0 % 08/15/23 01:32 Nucleated RBCs # 0.0 /100WBC 08/15/23 01:32 PT 17.50 SECONDS (12.1-14.9) H 08/15/23 01:32 INR 1.39 (0.8-1.2) H 08/15/23 01:32 Sodium 138 mmol/L (136-145) 08/15/23 01:32 Potassium 2.9 mmol/L (3.5-5.1) L 08/15/23 01:32 Chloride 94 mmol/L (98-107) L 08/15/23 01:32 Carbon Dioxide 32 mmol/L (22-29) H 08/15/23 01:32 Anion Gap 14.9 (5-19) 08/15/23 01:32 BUN 9 mg/dL (8-23) 08/15/23 01:32 Creatinine 0.3 mg/dL (0.5-0.9) L 08/15/23 01:32 GFR Calculation 221.2 mL/min (90-130) H 08/15/23 01:32 Glucose 102 mg/dL (65-115) 08/15/23 01:32 Calculated Osmolality 285 mOsm/kg (285-295) 08/15/23 01:32 Calcium 9.2 mg/dL (8.5-10.5) 08/15/23 01:32 Magnesium 1.7 mg/dL (1.7-2.3) 08/15/23 01:32 Total Bilirubin 0.6 mg/dL (0.15-1.2) 08/15/23 01:32 AST 17 U/L (0-32) 08/15/23 01:32 ALT 8 U/L (0-33) 08/15/23 01:32 Alkaline Phosphatase 73 U/L (35-105) 08/15/23 01:32 Troponin T Baseline 26 ng/L (0-10) H 08/15/23 01:32 Troponin T 120 Minute 30.07 ng/L (0-10) H 08/15/23 04:03 Delta Troponin T 4.07 ABS# (0-10) 08/15/23 04:03 C-Reactive Protein 27.0 mg/L (0.0-4.9) H 08/15/23 01:32 Total Protein 5.6 g/dL (6.6-8.7) L 08/15/23 01:32 Albumin 2.8 g/dL (3.5-5.2) L 08/15/23 01:32 Globulin 2.8 g/dL (1.3-4.6) 08/15/23 01:32 Urine Color Yellow (Yellow) 08/15/23 01:32 Urine Appearance Clear (CLEAR) 08/15/23 01:32 Urine pH 7 (5-7) 08/15/23 01:32 Ur Specific [place] 1.015 (1.005-1.030) 08/15/23 01:32 Urine Protein 1+ (Negative) H 08/15/23 01:32 Urine Glucose (UA) Trace (Normal) H 08/15/23 01:32 Urine Ketones 3+ (Negative) H 08/15/23 01:32 Urine Blood Trace (Negative) H 08/15/23 01:32 Urine Nitrate Negative (Negative) 08/15/23 01:32 Urine Bilirubin 1+ (Negative) H 08/15/23 01:32 Urine Urobilinogen 4 mg/dL (Negative) H 08/15/23 01:32 Ur Leukocyte Esterase Trace (Negative) H 08/15/23 01:32 Urine RBC 5-10 /hpf (0-2) H 08/15/23 01:32 Urine WBC 0-4 /hpf (0-5) H 08/15/23 01:32 Ur Squamous Epith Cells 5-10 /hpf (0-5) H 08/15/23 01:32 Amorphous Sediment Not Reportable 08/15/23 01:32 Urine Bacteria 2+ /hpf (NONE) H 08/15/23 01:32 Hyaline Casts 0-4 /lpf H 08/15/23 01:32 Urine Mucus 1+ /hpf 08/15/23 01:32 Urine Opiates Screen Negative ng/mL (Negative) 08/15/23 01:32 Ur Barbiturates Screen Negative ng/mL (Negative) 08/15/23 01:32 Ur Phencyclidine Scrn Negative ng/mL (Negative) 08/15/23 01:32 Ur Amphetamines Screen Negative ng/mL (Negative) 08/15/23 01:32 U Benzodiazepines Scrn Positive ng/mL (Negative) H 08/15/23 01:32 Urine Cocaine Screen Negative ng/mL (Negative) 08/15/23 01:32 U Marijuana (THC) Screen Negative ng/mL (Negative) 08/15/23 01:32 All radiology interpretation(s) finalized by discharge Discharge Plan Discharge Patient Disposition: Home Clinical Impression: Acute hypokalemia, Acute pain of right shoulder Condition: Stable Prescriptions: New potassium chloride 20 mEq/15 mL liquid 20 meq PO DAILY Qty: 473 0RF Discontinued potassium chloride 10 mEq tablet extended release 10 meq PO QAM No Action atorvastatin 40 mg tablet 40 mg PO QAM pantoprazole 40 mg tablet,delayed release (DR/EC) 40 mg PO BID oxybutynin chloride 5 mg tablet extended release 24hr 5 mg PO DAILY lisinopril 40 mg tablet 40 mg PO DAILY@15 Hold Instructions: see pcp aripiprazole 5 mg tablet 5 mg PO DAILY fluoxetine [Prozac] 40 mg Capsule 40 mg PO QAM clopidogrel [Plavix] 75 mg Tablet 75 mg PO QAM acetaminophen 500 mg Tablet 1,000 mg PO Q6H PRN (Reason: Pain) cyclobenzaprine 10 mg tablet 10 mg PO TID PRN (Reason: Muscle Spasm) tramadol 50 mg tablet 50 mg PO Q6H PRN (Reason: Pain) Eliquis 5 mg Tablet See Rx Instructions .ROUTE .COMPLEX Qty: 30 0RF Rx Instructions: 10 mg twice a day x 4 days then drop dose to 5 mg twice a day indefinitely. Discharge Orders: Discharge ED (Routine); Ordered 08/15/23 Ordered By: Wiliam Jose Referrals: John,ADAN Grier [Primary Care Provider] - 1 week Patient Instructions: Hypokalemia (ED) Activity Restrictions/Additional Instructions: Your evaluation in ER was essentially benign other than your low potassium. We will be changed over to liquid potassium to make it easier to swallow. Prescriptions been sent to your pharmacy. Your urinalysis did show you may have a slight urinary tract infection however this is questionable a culture will be obtained this takes 2 to 3 days if anything other than skin bacteria grows out you will be called and placed on antibiotics. Otherwise please follow-up with your family practice physician within the next 7 days for further evaluation and treatment. 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
--- NOTE | 2023-08-15 01:17 | ECG_ITS ---
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 Measurements Intervals [place] Rate: 95 P: 19 ID: [id number] QRS: -54 QRSD: 85 T: 31 QT: 277 QTc: 349 Interpretive Statements SINUS RHYTHM S1-S2-S3 PATTERN, CONSISTENT WITH PULMONARY DISEASE, RVH, OR NORMAL VARIANT LEFT ANTERIOR FASCICULAR BLOCK [QRS AXIS <= -45, QR IN I, RS IN II] POSSIBLE ANTERIOR MYOCARDIAL INFARCTION , PROBABLY OLD [30 ms Q WAVE IN V3/V4, OR R < 0.2 mV IN V4] Compared to ECG 07/28/2023 05:45:14 Right ventricular hypertrophy now present Left anterior fascicular block now present Myocardial infarct finding still present Electronically Signed On 08-15-2023 18:51:49 CDT by Cr Devine M.D. [id number] nikolas
--- NOTE | 2023-08-15 01:24 | CTR_ITS ---
PROCEDURE INFORMATION: Exam: CT Head Without Contrast Exam date and time: 08/15/2023 1:39 AM Age: 68 years old Clinical indication: Altered mental status/memory loss; Patient HX: EMS arrival for unresponsiveness. Patient very lethargic upon exam. Currently on anticoagulants for pe. ; Additional info: AMS unresponsiveness, on anticoagulation, HX dvt/pe, TECHNIQUE: Imaging protocol: Computed tomography of the head without contrast. Radiation optimization: All CT scans at this facility use at least one of these dose optimization techniques: automated exposure control; mA and/or kV adjustment per patient size (includes targeted exams where dose is matched to clinical indication); or iterative reconstruction. COMPARISON: CT head wo con* [id number] 07/28/2023 12:28 AM RADIATION DOSE METRICS: Total DLP (mGy-cm): 863.59 FINDINGS: Brain: No acute confluent lobar ischemic infarct. No acute intracranial hemorrhage. Stable left cerebellar lacune. Cerebral ventricles: The ventricles and sulci are prominent in size compatible with mild atrophy. Paranasal sinuses: Visualized sinuses are unremarkable. No fluid levels. Mastoid air cells: Visualized mastoid air cells are well aerated. Bones: No acute calvarial fracture. Soft tissues: Visualized soft tissues are unremarkable. CT/CT head wo con* [id number] IMPRESSION: No acute intracranial abnormality. If symptoms persist, consider further evaluation with MRI, if MRI is clinically safe to obtain.
--- NOTE | 2023-08-15 01:24 | XRR_ITS ---
PROCEDURE INFORMATION: Exam: XR Chest Exam date and time: 08/15/2023 1:32 AM Age: 68 years old Clinical indication: Other: AMS; Patient HX: EMS arrival for unresponsiveness. Patient very lethargic upon exam. Currently on anticoagulants for pe. ; Additional info: AMS cough TECHNIQUE: Imaging protocol: Radiologic exam of the chest. Views: 1 view. COMPARISON: CT angio chest PE protcl [id number] 07/28/2023 7:57 AM FINDINGS: Lungs: Mild diffuse interstitial prominence with bibasilar atelectasis/infiltrates. Pleural spaces: No pleural effusion. No pneumothorax. Heart/Mediastinum: Mild cardiomegaly. Bones/joints: No acute bony abnormality. XR/XR chest 1V portable [id number] IMPRESSION: Findings compatible with pulmonary vascular congestion. Infection can not be excluded. Recommend clinical correlation.
[2023-08-15 01:37] LABS: Basophils % 0.1 %; Eosinophils % 0.3 %; Hematocrit 38.9 % (36-47); Lymphocytes % 9.9 %; Mean Corpuscular HGB Conc 31.6 g/dL (30-55); Mean Corpuscular Hemoglobin 31.4 pg (27-33); Mean Corpuscular Volume 99.2 fl (85-98); Mean Platelet Volume 11.3 fL (7.4-10.4); Monocytes # 1.1 10^3/uL (0.2-0.9); Monocytes % 11.1 %; Neutrophils % 78.1 %; Nucleated Red Blood Cells % 0 %; Platelet Count 206 10^3/cmm (157-399); Red Blood Count 3.92 10^6/uL (3.85-5.65); Red Cell Distribution Width 13.5 % (12.1-15.1); White Blood Count 9.61 10^3/uL (3.29-11.43)
[2023-08-15 01:50] LABS: INR 1.39 (0.8-1.2)
[2023-08-15 01:56] LABS: Troponin(5th) Baseline 26 ng/L (0-10)
[2023-08-15 02:00] LABS: Alanine Aminotransferase 8 U/L (0-33); Albumin Level 2.8 g/dL (3.5-5.2); Alkaline Phosphatase 73 U/L (35-105); Anion Gap 14.9 (5-19); Aspartate Amino Transferase 17 U/L (0-32); Blood Urea Nitrogen 9 mg/dL (8-23); Calcium 9.2 mg/dL (8.5-10.5); Carbon Dioxide 32 mmol/L (22-29); Chloride 94 mmol/L (98-107); Creatinine Clr Calc Pharmacy 62.7831; Globulin 2.8 g/dL (1.3-4.6); Glomerular Filtration Rate 221.2 mL/min (90-130); Glucose 102 mg/dL (65-115); Magnesium 1.7 mg/dL (1.7-2.3); Osmolality Calculated 285 mOsm/kg (285-295); Sodium 138 mmol/L (136-145); Total Bilirubin 0.6 mg/dL (0.15-1.2); Total Protein 5.6 g/dL (6.6-8.7)
[2023-08-15 02:02] LABS: Potassium 2.9 mmol/L (3.5-5.1)
[2023-08-15 02:03] LABS: Amphetamines Screen Urine Negative (Negative); Barbiturates Screen Urine Negative (Negative); Benzodiazepines Screen Urine Positive (Negative); Cocaine Screen Urine Negative (Negative); Opiate Screen Urine Negative (Negative); PCP Screen Urine Negative (Negative); THC Screen Urine Negative (Negative)
[2023-08-15 02:09] LABS: Add Urine Microscopic? YES; Bacteria Urine 2+ /hpf; Bilirubin Urine 1+ (Negative); Blood Urine Trace (Negative); Glucose Urine UA Trace (Normal); Hyaline Casts Urine 0-4 /lpf; Ketones Urine 3+ (Negative); Leukocyte Esterase Urine Trace (Negative); Mucus Urine 1+ /hpf; Nitrate Urine Negative (Negative); Protein Urine 1+ (Negative); Specific Gravity, Urine 1.015 (1.005-1.030); Urine Appearance Clear (CLEAR); Urine Color Yellow (Yellow); Urobilinogen Urine 4 mg/dL (Negative); WBC Urine 0-4 /hpf (0-5); pH Urine 7 (5-7)
[2023-08-15] MEDS: potassium chloride ER 20 mEq Tablet 40 MEQ PO (02:19)
[2023-08-15] MEDS: sodium chloride 0.9% 1,000 ML 999 ML IV (03:29)
[2023-08-15 03:30] VITALS: BP 165/76; PULSE 87; RESP 16; O2SAT 93
[2023-08-15 04:29] LABS: Troponin 5 2HR 30.07 ng/L (0-10); Troponin 5 2HR Delta 4.07 ABS# (0-10)
--- NOTE | 2023-08-15 04:35 | XRR_ITS ---
PROCEDURE INFORMATION: Exam: XR Right Shoulder Exam date and time: 08/15/2023 4:36 AM Age: 68 years old Clinical indication: Right; Patient HX: C/O RT shoulder pain. No injury. ; Additional info: Shoulder pain no known trauma TECHNIQUE: Imaging protocol: Radiologic exam of the right shoulder. Views: 2 or more views. COMPARISON: CR (CHEST, ) 08/15/2023 1:32 AM FINDINGS: Bones/joints: Normal. Soft tissues: Normal. XR/XR shoulder RT min 2V* [id number] IMPRESSION: No acute findings.
== END 2023-08-15 05:52 | disposition home or self-care (01) ==
PROVIDERS: Emergency Provider Emergency Medicine; PCP Nurse Practitioner Family
DX: E87.6 Hypokalemia (principal); M25.511 Pain in right shoulder; I10 Essential (primary) hypertension; J44.9 Chronic obstructive pulmonary disease, unspecified; Z79.899 Other long term (current) drug therapy; Z79.01 Long term (current) use of anticoagulants
CPT/HCPCS: 36415; 70450; 71045; 73030; 80053; 80306; 81001; 83735; 84484; 85025; 85610; 86140; 93005; 96360; 96361; 99285; J7030